=== PATIENT | female | born 1970 | race Caucasian/White ===

== ENCOUNTER 2017-07-21 08:47 | Emergency (ER) | payer SELFPAY ==
[~2017-07-21] VITALS: Ht 175.3 cm; Wt 107.0 kg
[~2017-07-21 08:47] MED LIST: CPR500 PO; ESCI10TA17 PO; LISI-729 PO; LRT5 PO; METR-163 PO
[2017-07-21 08:53] VITALS: TEMP 36.9; Ht 175.3 cm; Wt 107.0 kg
[2017-07-21] MEDS ORDERED: DICYCLOMINE HCL 20 MG TAB PO STA (09:18)
[2017-07-21 09:46] LABS: BASO % 0.4 %; BASO ABS # 0.04 K/uL (0-0.2); COMPLETE YES; EOS % 3.9 %; HEMATOCRIT 39.4 % (37-47); IG% 0.3 %; LYMPH % 18.8 %; LYMPH ABS # 1.88 K/uL (1.2-3.4); MEAN CELL VOLUME 92.3 fL (80-100); MEAN CORPUSCULAR HEMOGLOBIN 30.7 pg (25-34); MEAN CORPUSCULAR HGB CONC 33.2 g/dl (32-36); MEAN PLATELET VOLUME 9.9 fL (7.4-10.4); MONO % 5.1 %; NEUT % 71.5 %; PLATELET COUNT 306 K/uL (130-400); RED BLOOD COUNT 4.27 M/uL (4.2-5.4)
[2017-07-21] MEDS ORDERED: LISI20TA3 PO (09:46)
[2017-07-21] MEDS ORDERED: TURM1CAP2 PO (09:46)
[2017-07-21] MEDS ORDERED: CYAN100020 PO (09:46)
[2017-07-21 10:05] LABS: BUN/CREATININE RATIO 8.5 (10-20); CALCIUM 8.2 mg/dl (8.5-10.1); CREATININE 1.11 mg/dl (0.60-1.20); POTASSIUM 3.5 mmol/L (3.5-5.1)
--- NOTE | 2017-07-21 10:20 | DIAGNOSTIC IMAGING REPORT ---
PA CHEST WITH ABDOMINAL SERIES CLINICAL HISTORY: Generalized abdominal pain. FINDINGS: A PA chest radiograph is compared to study dated 08/02/2011. The cardiomediastinal silhouette is unremarkable. The lungs and pleural spaces are clear. No pneumothorax is seen. The bony thorax is grossly intact. Supine and erect abdominal radiographs are correlated with abdominal CT dated 01/05/2012. There is a nonobstructed abdominal bowel gas pattern. No evidence of intraperitoneal free air is seen. There are no abnormal abdominal calcifications. The lumbosacral spine and bony pelvis appear intact. IMPRESSION: 1. No active disease in the chest. 2. Nonobstructed abdominal bowel gas pattern. Electronically signed by: Cam Christensen M.D. 07/21/2017 10:18 AM Dictated Date/Time: 07/21/2017 10:17 AM
[2017-07-21] MEDS ORDERED: IBUPROFEN 600 MG TAB PO STA (10:37)
[2017-07-21] MEDS ORDERED: DICY20TA35 PO (10:43)
--- NOTE | 2017-07-21 10:46 | EMERGENCY ROOM VISIT NOTE ---
History First contact with patient: 09:05 Chief Complaint: GI ASSESSMENT Stated Complaint: STOMACH SPASMS, IBS Nursing Triage Summary: pt reports hx of IBS this started to act up 1 day ago and today is worse. denies Vomitting History of Present Illness The patient is a 46 year old female who presents to the Emergency Room with complaints of generalized abdominal cramping. The patient states the symptoms started yesterday. The patient has a history of IBS. She states the symptoms are similar to when she has had in the past. The patient denies any nausea or vomiting. The patient states she had a normal bowel movement yesterday. She has not had a bowel movement today. The patient denies any urinary symptoms of frequency, urgency or dysuria. The patient does not have any medication at home to take for her IBS. She states that she had Cipro at home which she took one dose yesterday and 1 today. Review of Systems 10 system review was performed and was negative unless stated otherwise history of present illness. Past Medical/Surgical History Hypertension, IBS, Social History Smoking Status: Never Smoker Alcohol Use: occasionally Marital Status: single Housing Status: lives with family Occupation Status: employed Current/Historical Medications Scheduled Cyanocobalamin (Vitamin B12), 1 TAB PO DAILY Lisinopril (Prinivil), 20 MG PO DAILY Turmeric (Curcuma Longa) (Turmeric), 1 CAP PO DAILY Physical Exam Vital Signs Date Time Temp Pulse Resp B/P (MAP) Pulse Ox O2 Delivery O2 Flow Rate FiO2 07/21/17 08:53 36.9 107 20 187/120 98 Room Air Physical Exam GENERAL: 46-year-old white female appears in no acute distress. MENTAL Status: Alert and oriented 3. MOUTH: Mucosa is moist NECK: Supple, no lymphadenopathy noted. No carotid bruits noted. LUNGS: Clear auscultation without wheezes rales or rhonchi. CARDIAC: Regular rate and rhythm without murmur. Pulses is full and equal throughout. BACK: No CVA tenderness noted. ABDOMEN: Positive bowel sounds all 4 quadrants. Soft, mild generalized tenderness to palpation without organomegaly or masses. EXTREMITIES: No cyanosis or edema noted. Medical Decision & Procedures ER Provider Diagnostic Interpretation: PA CHEST WITH ABDOMINAL SERIES CLINICAL HISTORY: Generalized abdominal pain. FINDINGS: A PA chest radiograph is compared to study dated 08/02/2011. The cardiomediastinal silhouette is unremarkable. The lungs and pleural spaces are clear. No pneumothorax is seen. The bony thorax is grossly intact. Supine and erect abdominal radiographs are correlated with abdominal CT dated 01/05/2012. There is a nonobstructed abdominal bowel gas pattern. No evidence of intraperitoneal free air is seen. There are no abnormal abdominal calcifications. The lumbosacral spine and bony pelvis appear intact. IMPRESSION: 1. No active disease in the chest. 2. Nonobstructed abdominal bowel gas pattern. Electronically signed by: Cam Christensen M.D. 07/21/2017 10:18 AM Laboratory Results 07/21/17 09:30 Red Blood Count 4.27, Mean Corpuscular Volume 92.3, Mean Corpuscular Hemoglobin 30.7, Mean Corpuscular Hemoglobin Concent 33.2, Mean Platelet Volume 9.9, Neutrophils (%) (Auto) 71.5, Lymphocytes (%) (Auto) 18.8, Monocytes (%) (Auto) 5.1, Eosinophils (%) (Auto) 3.9, Basophils (%) (Auto) 0.4, Neutrophils # (Auto) 7.15, Lymphocytes # (Auto) 1.88, Monocytes # (Auto) 0.51, Eosinophils # (Auto) 0.39, Basophils # (Auto) 0.04 07/21/17 09:30 Test 07/21/17 09:30 White Blood Count 10.00 K/uL (4.8-10.8) Red Blood Count 4.27 M/uL (4.2-5.4) Hemoglobin 13.1 g/dL (12.0-16.0) Hematocrit 39.4 % (37-47) Mean Corpuscular Volume 92.3 fL (80-100) Mean Corpuscular Hemoglobin 30.7 pg (25-34) Mean Corpuscular Hemoglobin Concent 33.2 g/dl (32-36) Platelet Count 306 K/uL (130-400) Mean Platelet Volume 9.9 fL (7.4-10.4) Neutrophils (%) (Auto) 71.5 % Lymphocytes (%) (Auto) 18.8 % Monocytes (%) (Auto) 5.1 % Eosinophils (%) (Auto) 3.9 % Basophils (%) (Auto) 0.4 % Neutrophils # (Auto) 7.15 K/uL (1.4-6.5) Lymphocytes # (Auto) 1.88 K/uL (1.2-3.4) Monocytes # (Auto) 0.51 K/uL (0.11-0.59) Eosinophils # (Auto) 0.39 K/uL (0-0.5) Basophils # (Auto) 0.04 K/uL (0-0.2) RDW Standard Deviation 44.4 fL (36.4-46.3) RDW Coefficient of Variation 13.2 % (11.5-14.5) Immature Granulocyte % (Auto) 0.3 % Immature Granulocyte # (Auto) 0.03 K/uL (0.00-0.02) Anion Gap 7.0 mmol/L (3-11) Est Creatinine Clear Calc Drug Dose 81.6 ml/min Estimated GFR () 68.5 Estimated GFR (Non- 59.1 BUN/Creatinine Ratio 8.5 (10-20) Calcium Level 8.2 mg/dl (8.5-10.1) Total Bilirubin 0.6 mg/dl (0.2-1) Direct Bilirubin 0.1 mg/dl (0-0.2) Aspartate Amino Transf (AST/SGOT) 7 U/L (15-37) Alanine Aminotransferase (ALT/SGPT) 14 U/L (12-78) Alkaline Phosphatase 82 U/L (45-117) Total Protein 6.9 gm/dl (6.4-8.2) Albumin 3.4 gm/dl (3.4-5.0) Lipase 120 U/L (73-393) Medications Administered Medications (Trade) Dose Ordered Sig/Jed Route Start Time Stop Time Status Last Admin Dose Admin Dicyclomine HCl (Bentyl Tab) 20 mg NOW STAT PO 07/21/17 09:18 07/21/17 09:20 DC 07/21/17 10:05 20 MG ED Course The patient was evaluated. The patient's EMR medication list were reviewed. IV access was obtained. CBC and differential, renal profile, LFTs and lipase levels were ordered. The patient was given Bentyl 20 mg by mouth. Abdominal series x-ray was ordered and interpreted by the radiologist and myself as above any acute findings. Labs are reviewed and were all unremarkable. The patient was reevaluated and stated that the Bentyl helped with the cramping. She states her abdomen which just sore. She was given ibuprofen 600 mg by mouth for pain. The patient's blood pressure was also elevated. She stated she did not take her blood pressure medicine this morning. I instructed the patient if her blood pressure to talk him down with her medication she needs to go to her family doctor in 2 days for recheck. The patient verbalized understanding. The patient was discharged home in stable condition. Medical Decision Differential diagnosis include muscular strain, viral gastroenteritis, bowel obstruction, flare of IBS Since the patient stated that this was similar to her IBS flares in the past a CT was not ordered. She was given Bentyl with relief of her symptoms. [facility] Drug Monitoring Program Search Results: patient reviewed within database Medication Reconcilliation Current Medication List: was personally reviewed by me Blood Pressure Screening Patient's blood pressure: Elevated blood pressure Blood pressure disposition: Referred to PCP Ibuprofen 600 mg every 6 hours with food for pain. Take Bentyl as directed for abdominal cramping. If symptoms persist, follow-up with your family doctor or return to ER. Impression Primary Impression: IBS (irritable bowel syndrome) Additional Impression: Elevated blood pressure reading Departure Information Dispostion Home / Self-Care Condition GOOD Prescriptions Dicyclomine Hcl (BENTYL) 20 Mg Tab 20 MG PO Q8 for abdominal cramps, #20 TAB Prov: Niharika Peters PA-C 07/21/17 Referrals Luc Almanzar DO (PCP) Forms HOME CARE DOCUMENTATION FORM, IMPORTANT VISIT INFORMATION Patient Instructions ED IBS, [facility] Additional Instructions Ibuprofen 600 mg every 6 hours with food for pain. Take Bentyl as needed for abdominal cramping. If symptoms are not improving, follow-up with your family doctor or return to ER. Also if your blood pressure is still elevated after taking her blood pressure medication, recommend follow-up with your family physician on Sunday for recheck. Problem Qualifiers Primary Impression: IBS (irritable bowel syndrome) Irritable bowel syndrome type: without diarrhea Qualified Codes: K58.9 - Irritable bowel syndrome without diarrhea
[2017-07-21 11:06] VITALS: BP 187/135; PULSE 90; O2SAT 98
[2017-07-22] MEDS ORDERED: OXYC1TAB3 PO (22:02)
== END 2017-07-21 11:06 | disposition home or self-care (01) ==
LOC: C.EDB 08:48
DX: K58.9 Irritable bowel syndrome, unspecified (principal); I10 Essential (primary) hypertension

== ENCOUNTER 2017-07-22 17:08 | Emergency (ER) | payer OTHER ==
[~2017-07-22 17:08] MED LIST changes: -CPR500 PO; +CYAN100020 PO; +DICY20TA35 PO; -ESCI10TA17 PO; -LISI-729 PO; +LISI20TA3 PO; -LRT5 PO; -METR-163 PO; +TURM1CAP2 PO
[2017-07-22 17:52] VITALS: TEMP 36.9; Ht 175.3 cm
[2017-07-22] MEDS ORDERED: ONDANSETRON INJ 2 MG/ML 2 ML VIAL IV STA (18:14)
[2017-07-22] MEDS ORDERED: MoRPHine SULFATE 4 MG/ML 1 ML CARP\\VIAL IV STA (18:14)
[2017-07-22 18:41] LABS: BASO % 0.2 %; BASO ABS # 0.03 K/uL (0-0.2); COMPLETE YES; EOS % 2.2 %; HEMATOCRIT 40.9 % (37-47); IG% 0.2 %; LYMPH % 13.4 %; LYMPH ABS # 1.87 K/uL (1.2-3.4); MEAN CELL VOLUME 93.2 fL (80-100); MEAN CORPUSCULAR HEMOGLOBIN 31.7 pg (25-34); MONO % 4.8 %; NEUT % 79.2 %; PLATELET COUNT 338 K/uL (130-400); RED BLOOD COUNT 4.39 M/uL (4.2-5.4); WHITE BLOOD COUNT 13.99 K/uL (4.8-10.8)
[2017-07-22 19:05] LABS: ALT/SGPT 14 U/L (12-78); AST/SGOT 8 U/L (15-37); BLOOD UREA NITROGEN 13 mg/dl (7-18); BUN/CREATININE RATIO 10.2 (10-20); CALCIUM 8.9 mg/dl (8.5-10.1); CARBON DIOXIDE 26 mmol/L (21-32); CHLORIDE 105 mmol/L (98-107); CREATININE 1.25 mg/dl (0.60-1.20); GLUCOSE 111 mg/dl (70-99); POTASSIUM 3.4 mmol/L (3.5-5.1); SODIUM 139 mmol/L (136-145)
[2017-07-22 19:07] LABS: ALKALINE PHOSPHATASE 78 U/L (45-117)
[2017-07-22] MEDS ORDERED: SODIUM CHLORIDE 0.9% 1000ML 1,000 ML IV STA (19:35)
[2017-07-22 19:57] LABS: URINE APPEARANCE CLOUDY (CLEAR); URINE BILIRUBIN NEG (NEG); URINE COLOR YELLOW; URINE EPITHELIAL CELL AUTO >30 /lpf (0-5); URINE NITRITE NEG (NEG); URINE SPECIFIC GRAVITY 1.019 (1.000-1.030); UROBILINOGEN NEG (NEG)
[2017-07-22 19:58] LABS: MANUAL MICROSCOPIC REQUIRED? NO; REVIEW REQ? NO
[2017-07-22] MEDS ORDERED: OPTIRAY 320 IV PRN (21:30)
--- NOTE | 2017-07-22 21:31 | DIAGNOSTIC IMAGING REPORT ---
CT ABD/PELVIS IV AND ORAL CONT CLINICAL HISTORY: Diffuse abdominal pain. Possible colitis. COMPARISON STUDY: December 2011 TECHNIQUE: Following the IV administration of 116 mL of Optiray-320, CT scan of the abdomen and pelvis was performed from the lung bases to the proximal femurs. Images are reviewed in the axial, sagittal, and coronal planes. IV contrast was administered without complication. A dose lowering technique was utilized adhering to the principles of ALARA. CT DOSE: 978.53 mGy.cm FINDINGS: Lower chest: Dependent basal airspace opacities, are likely atelectatic. Liver: There is mild hepatic steatosis. There is trace perihepatic fluid. No focal hepatic masses are visualized. Gallbladder: Unremarkable. Spleen: Normal in size and attenuation. Pancreas: Unremarkable. Adrenal glands: Unremarkable. Kidneys: There is symmetric renal cortical enhancement. The kidneys are normal in size without hydronephrosis. Bowel: There is a thick-walled distal ileum. There is adjacent mesenteric fluid. There is minimal mesenteric edema There are no transition zone to indicate bowel obstruction. Peritoneum: There is a small amount of free fluid which is more than expected for physiologic free fluid. Vasculature: The abdominal aorta is normal in course and caliber. Adenopathy: None. Pelvic viscera: The bladder, and pelvic viscera are unremarkable. Skeletal structures: No destructive osseous lesions are seen. IMPRESSION: 1. No evidence of bowel obstruction. No evidence of free air 2. Moderately thick walled distal ileum with minimal mesenteric edema, and associated intraperitoneal fluid. The findings are most suggestive of an infectious ileitis or Crohn's disease. Clinical correlation and follow-up is recommended. Electronically signed by: Rk Guadarrama M.D. 07/22/2017 9:30 PM Dictated Date/Time: 07/22/2017 9:24 PM
[2017-07-22] MEDS ORDERED: OXYC1TAB3 PO (22:02)
[2017-07-22] MEDS ORDERED: OXYCODONE IR HOME PACK PO ONE (22:15)
[2017-07-22 22:21] VITALS: BP 167/107; PULSE 69; O2SAT 97
--- NOTE | 2017-07-22 22:25 | EMERGENCY ROOM VISIT NOTE ---
History Report prepared by Surinder: Asia Ko Under the Supervision of: Dr. Brannon Miranda M.D. First contact with patient: 18:07 Chief Complaint: GI ASSESSMENT Stated Complaint: IBS Nursing Triage Summary: patient reports seen here for same symptoms,patient reports worsening abdominal cramping History of Present Illness The patient is a 46 year old female who presents to the Emergency Room with complaints of worsening abdominal pain beginning 2 days ago. The patient states that her abdomen is tender and sore, and that she has been having spasms. The patient states that she has IBS, but that her pain from it does not usually last this long. The patient states that she has had diarrhea, but that this is common for her. She also reports vomiting and has had a loss of appetite. The patient denies fevers and vaginal discharge. She also denies a chance of . The patient states that she does not have a history of an appendectomy or a cholecystectomy. The patient states that she has a history of hypertension. Source of History: patient Onset: 2 days ago Position: abdomen Quality: cramping Timing: worsening Associated Symptoms: + vomiting, + diarrhea, No fevers, No melena, No hematochezia Review of Systems See HPI for pertinent positives & negatives. A total of 10 systems reviewed and were otherwise negative. Past Medical & Surgical Medical Problems: (1) Hypertension (2) IBS (irritable bowel syndrome) Family History No pertinent family history stated. Social History Smoking Status: Never Smoker Alcohol Use: occasionally Marital Status: Housing Status: lives with significant other Occupation Status: employed Current/Historical Medications Scheduled Cyanocobalamin (Vitamin B12), 1 TAB PO DAILY Dicyclomine Hcl (Bentyl), 20 MG PO Q8 Lisinopril (Prinivil), 20 MG PO DAILY Turmeric (Curcuma Longa) (Turmeric), 1 CAP PO DAILY Scheduled PRN Oxycodone Ir (Roxicodone Ir), 5 MG PO Q4H PRN for Pain Allergies Coded Allergies: No Known Allergies (Verified , 07/22/17) Physical Exam Vital Signs Date Time Temp Pulse Resp B/P (MAP) Pulse Ox O2 Delivery O2 Flow Rate FiO2 07/22/17 20:41 66 18 154/105 96 Room Air 07/22/17 17:52 36.9 100 18 139/96 97 Room Air Physical Exam Constitutional: Vital signs reviewed. Eyes: Pupils are equal round reactive to light. Conjunctiva are noninjected. ENT: Pharynx is clear without erythema or exudate. Mucous membranes are moist. Neck supple without meningeal signs. Respiratory: Clear to auscultation bilaterally. Breath sounds are equal bilaterally. Cardiovascular: Regular rate and rhythm. No rubs or gallops. GI: Soft, nondistended. Diffuse abdominal tenderness. No guarding. Bowel sounds are present. Musculoskeletal: No peripheral edema. No CVA tenderness. Integumentary: No cyanosis. Neurological: The patient is awake and alert. No focal deficits. Psychiatric: Normal affect. Medical Decision & Procedures ER Provider Diagnostic Interpretation: Radiology results as stated below per my review and the radiologist's interpretation: CT ABD/PELVIS IV AND ORAL CONT CLINICAL HISTORY: Diffuse abdominal pain. Possible colitis. COMPARISON STUDY: December 2011 TECHNIQUE: Following the IV administration of 116 mL of Optiray-320, CT scan of the abdomen and pelvis was performed from the lung bases to the proximal femurs. Images are reviewed in the axial, sagittal, and coronal planes. IV contrast was administered without complication. A dose lowering technique was utilized adhering to the principles of ALARA. CT DOSE: 978.53 mGy.cm FINDINGS: Lower chest: Dependent basal airspace opacities, are likely atelectatic. Liver: There is mild hepatic steatosis. There is trace perihepatic fluid. No focal hepatic masses are visualized. Gallbladder: Unremarkable. Spleen: Normal in size and attenuation. Pancreas: Unremarkable. Adrenal glands: Unremarkable. Kidneys: There is symmetric renal cortical enhancement. The kidneys are normal in size without hydronephrosis. Bowel: There is a thick-walled distal ileum. There is adjacent mesenteric fluid. There is minimal mesenteric edema There are no transition zone to indicate bowel obstruction. Peritoneum: There is a small amount of free fluid which is more than expected for physiologic free fluid. Vasculature: The abdominal aorta is normal in course and caliber. Adenopathy: None. Pelvic viscera: The bladder, and pelvic viscera are unremarkable. Skeletal structures: No destructive osseous lesions are seen. IMPRESSION: 1. No evidence of bowel obstruction. No evidence of free air 2. Moderately thick walled distal ileum with minimal mesenteric edema, and associated intraperitoneal fluid. The findings are most suggestive of an infectious ileitis or Crohn's disease. Clinical correlation and follow-up is recommended. Electronically signed by: Rk Guadarrama M.D. 07/22/2017 9:30 PM Dictated Date/Time: 07/22/2017 9:24 PM Laboratory Results 07/22/17 18:29 Red Blood Count 4.39, Mean Corpuscular Volume 93.2, Mean Corpuscular Hemoglobin 31.7, Mean Corpuscular Hemoglobin Concent 34.0, Mean Platelet Volume 10.0, Neutrophils (%) (Auto) 79.2, Lymphocytes (%) (Auto) 13.4, Monocytes (%) (Auto) 4.8, Eosinophils (%) (Auto) 2.2, Basophils (%) (Auto) 0.2, Neutrophils # (Auto) 11.08, Lymphocytes # (Auto) 1.87, Monocytes # (Auto) 0.67, Eosinophils # (Auto) 0.31, Basophils # (Auto) 0.03 07/22/17 18:29 Test 07/22/17 18:29 07/22/17 19:40 White Blood Count 13.99 K/uL (4.8-10.8) Red Blood Count 4.39 M/uL (4.2-5.4) Hemoglobin 13.9 g/dL (12.0-16.0) Hematocrit 40.9 % (37-47) Mean Corpuscular Volume 93.2 fL (80-100) Mean Corpuscular Hemoglobin 31.7 pg (25-34) Mean Corpuscular Hemoglobin Concent 34.0 g/dl (32-36) Platelet Count 338 K/uL (130-400) Mean Platelet Volume 10.0 fL (7.4-10.4) Neutrophils (%) (Auto) 79.2 % Lymphocytes (%) (Auto) 13.4 % Monocytes (%) (Auto) 4.8 % Eosinophils (%) (Auto) 2.2 % Basophils (%) (Auto) 0.2 % Neutrophils # (Auto) 11.08 K/uL (1.4-6.5) Lymphocytes # (Auto) 1.87 K/uL (1.2-3.4) Monocytes # (Auto) 0.67 K/uL (0.11-0.59) Eosinophils # (Auto) 0.31 K/uL (0-0.5) Basophils # (Auto) 0.03 K/uL (0-0.2) RDW Standard Deviation 46.2 fL (36.4-46.3) RDW Coefficient of Variation 13.5 % (11.5-14.5) Immature Granulocyte % (Auto) 0.2 % Immature Granulocyte # (Auto) 0.03 K/uL (0.00-0.02) Anion Gap 8.0 mmol/L (3-11) Estimated GFR () 59.3 Estimated GFR (Non- 51.2 BUN/Creatinine Ratio 10.2 (10-20) Calcium Level 8.9 mg/dl (8.5-10.1) Total Bilirubin 0.7 mg/dl (0.2-1) Direct Bilirubin 0.1 mg/dl (0-0.2) Aspartate Amino Transf (AST/SGOT) 8 U/L (15-37) Alanine Aminotransferase (ALT/SGPT) 14 U/L (12-78) Alkaline Phosphatase 78 U/L (45-117) Total Protein 7.4 gm/dl (6.4-8.2) Albumin 3.6 gm/dl (3.4-5.0) Lipase 108 U/L (73-393) Urine Color YELLOW Urine Appearance CLOUDY (CLEAR) Urine pH 5.0 (4.5-7.5) Urine Specific [place] 1.019 (1.000-1.030) Urine Protein NEG (NEG) Urine Glucose (UA) NEG (NEG) Urine Ketones NEG (NEG) Urine Occult Blood NEG (NEG) Urine Nitrite NEG (NEG) Urine Bilirubin NEG (NEG) Urine Urobilinogen NEG (NEG) Urine Leukocyte Esterase NEG (NEG) Urine WBC (Auto) 5-10 /hpf (0-5) Urine RBC (Auto) 0-4 /hpf (0-4) Urine Hyaline Casts (Auto) 5-10 /lpf (0-5) Urine Epithelial Cells (Auto) >30 /lpf (0-5) Urine Bacteria (Auto) NEG (NEG) Urine Test NEG (NEG) Laboratory results as reviewed by me. Medications Administered Medications (Trade) Dose Ordered Sig/Jed Route Start Time Stop Time Status Last Admin Dose Admin Morphine Sulfate (MoRPHine SULFATE INJ) 4 mg ONE STAT IV 07/22/17 18:14 07/22/17 18:15 DC 07/22/17 18:35 4 MG Ondansetron HCl (Zofran Inj) 4 mg NOW STAT IV 07/22/17 18:14 07/22/17 18:15 DC 07/22/17 18:35 4 MG Sodium Chloride 1,000 ml @ 999 mls/hr Q1H1M STAT IV 07/22/17 19:35 07/22/17 20:35 DC 07/22/17 19:47 999 MLS/HR Oxycodone HCl (Roxicodone Immediate Rel 5MG Home Pack) 1 homepack UD ONCE PO 07/22/17 22:15 07/22/17 22:16 DC 07/22/17 22:16 1 HOMEPACK ED Course 1808: The patient was evaluated in room A12B. A complete history and physical exam was performed. 1813: Ordered Zofran Inj 4 mg IV, Morphine Sulfate 4 mg IV. 1934: Ordered Sodium Chloride 1,000 ml @ 999 mls/hr IV. 2141: The patient reports feeling better. I discussed her results. 2142: Dr. Osei states that he would not treat the patient with anything at this point. He states that she can call the office tomorrow and she can make an appointment this week. 2144: I discussed what Dr. Osei said with the patient and she agrees with the plan. 2199: Upon reevaluation, the patient appeared to have improvement of her symptoms. I discussed giovanny's findings with her. She verbalized agreement of the treatment plan. She was discharged home. Medical Decision This is a 46-year-old female who presents with abdominal pain. Differential diagnosis includes irritable bowel syndrome, inflammatory bowel disease, colitis , enteritis, appendicitis, pancreatitis. I did perform a limited focused review of portions of the patient's old chart on the electronic medical record. The patient was seen here yesterday for abdominal pain. She had blood work done , was treated with Bentyl, and was discharged home. She had a colonoscopy done in 2011 which showed a polyp. I did evaluate the patient as noted above. Patient is presenting with worsening abdominal pain for the past 2 days. She has a history of IBS but her pain is more prolonged than usual and she has tenderness in the lower abdomen. IV access was established. I did treat the patient with IV morphine and Zofran. I did order stool cultures but the patient was unable to give us a sample. I did order and personally review the patient's urinalysis as described above. I did order and review the patient's blood work as noted in the electronic medical record. Her white blood cell count is elevated. I did order a CT of the abdomen and pelvis. I did review the images myself as well as the radiology report as described above. She has evidence of ileitis. I did discuss the test results with the patient. She is feeling better at this time. I did discuss the case with Dr. Osei with gastroenterology. He did not recommend any treatment at this time. He did not recommend antibiotics or steroids. Her prior colonoscopy did not show any signs of inflammatory bowel disease. He stated that the patient could call in the morning for appointment later this week. The patient was happy with this plan. I did give her a short prescription for oxycodone for breakthrough pain. She was given precautions regarding this medication. Her blood pressure is elevated here but the patient states that she has not been taking her lisinopril for the past 3 days. The patient was advised to take her medications on a regular basis and discharged in good condition. [place] Drug Monitoring Program Search Results: patient reviewed within database Drug Monitoring Findings: no matching patients Medication Reconcilliation Current Medication List: was personally reviewed by me Blood Pressure Screening Patient's blood pressure: Elevated blood pressure Blood pressure disposition: Referred to PCP Consults Time Called: 2141 Consulting Physician: Dr. Osei- - [facility] Returned Call: 2142 Dr. Osei states that he would not treat the patient with anything at this point. He states that she can call the office tomorrow and she can make an appointment this week. Impression Primary Impression: Ileitis Scribe Attestation The scribe's documentation has been prepared under my direct and personally reviewed by me in its entirety. I confirm that the note above accurately reflects all work, treatment, procedures, and medical decision making performed by me. Departure Information Dispostion Home / Self-Care Prescriptions Oxycodone Ir (Roxicodone Ir) 5 Mg Tab 5 MG PO Q4H Y for Pain, #10 TAB Prov: Brannon Miranda M.D. 07/22/17 Referrals Luc Almanzar DO (PCP) David Osei D.O. Forms HOME CARE DOCUMENTATION FORM, IMPORTANT VISIT INFORMATION Patient Instructions My [facility] Additional Instructions You have been examined and treated today on an emergency basis only. This is not a substitute for, or an effort to provide, complete comprehensive medical care. It is impossible to recognize and treat all injuries or illnesses in a single emergency department visit. It is therefore important that you follow up closely with Dr. Osei this week. Call as soon as possible for an appointment. Return for worsening symptoms or if you develop fever, vomiting, or any other concerning symptoms.
== END 2017-07-22 22:24 | disposition home or self-care (01) ==
LOC: C.EDB 17:08 → C.EDA 22:24
DX: K52.9 Noninfective gastroenteritis and colitis, unspecified (principal); I10 Essential (primary) hypertension; K58.9 Irritable bowel syndrome, unspecified

== ENCOUNTER 2018-11-28 15:09 | Inpatient (IN) ==
--- NOTE | 2018-11-28 16:30 | Emergency Department Note ---
History of Present Illness General Chief complaint: Neuro Symptoms/Deficit Stated complaint: HYPERSION,RT HAND WEAKNESS,NUMBNESS,SPEECH PROBLEM Source: patient Mode of arrival: ambulatory Limitations: no limitations History of Present Illness This patient is a 48-year-old female who presents the emergency department complaining of persistent neuro symptoms. She states that she first developed some tingling and weakness in her right hand 4 days ago. She does report she fell on ice a few weeks ago and hit her elbow and initially attributed her symptoms to this. She states that her friends noted that her speech was slurred and she has noticed she has had some trouble finding certain words. She was seen here 3 days ago for these symptoms and had a negative CT. She states her blood pressure has been very elevated. She has a history of hypertension and was previously on lisinopril. Her PCP had added on hydrochlorothiazide, however the patient thought she was only supposed to be taking the hydrochlorothiazide. When she was seen here, they started her on Norvasc and for the past several days she has only been taking the Norvasc for her hypertension. She does report a history of migraine headaches and has been having daily headaches as well. She was treated with medications for migraine on her last visit here with no i mprovement of her neuro symptoms. She denies any pain at this time. She denies chest pain, shortness of breath or abdominal pain. She denies urinary symptoms. She does note she has felt slightly unsteady on her feet but denies any falls. Her significant other notes that she has started a new diet recently and has been cutting out sweets and decreasing portion sizes. Home Medications Home Medications Medication Instructions Recorded Confirmed Type amlodipine [Norvasc] 10 mg PO DAILY #20 tab 11/25/18 11/28/18 Rx duloxetine [Cymbalta] 30 mg PO DAILY 11/25/18 11/28/18 History fluticasone [Flonase Allergy 2 spray INTRANASAL DAILY 11/25/18 11/28/18 History Relief] hydrochlorothiazide 12.5 mg PO DAILY 11/25/18 11/28/18 History Appetite Supressant Gtts 5 drp PO TID 11/28/18 11/28/18 History lisinopril 0 mg PO DAILY 11/28/18 11/28/18 History Allergies Allergy/AdvReac Type Severity Reaction Status Date / Time No Known Allergies Allergy Verified 11/25/18 10:28 Past Med/Surg History Medical History IBS (irritable bowel syndrome) (Chronic) Hypertension (Chronic) Social History 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 Fitness Required: No marital status: Current Living Situation: Spouse current occupational status: employed Feels Safe at Home: Yes Safety Concerns: Feels Safe At This Time Smoking Status: Never smoker Hx Alcohol Use: Yes ("1-2 drinks every 2 weeks") Hx Substance Use: No Review of Systems A total of 10 systems reviewed and were otherwise negative Physical Exam Vital Signs Vital Signs - 24 hr 11/28/18 15:13 11/28/18 15:40 11/28/18 17:31 Temperature 36.5 C Temperature Source Oral Sepsis Recent Fever Within 48 Hours No Sepsis Action Taken by Nursing No Action Required Pulse Rate 90 Pulse Rate [Finger] 94 H Pulse Rate [Left Apical] Pulse Rhythm Regular Pulse Rhythm [Left Apical] Pulse Strength Normal Pulse Strength [Left Apical] Respiratory Rate 20 17 Respiratory Effort / Characteristics Non-Labored Spontaneous Respiratory Depth Normal Normal Respiratory Pattern Blood Pressure 164/122 H Blood Pressure [Left Arm] 193/117 H Blood Pressure [Right Arm] Blood Pressure Mean 136 Blood Pressure Mean [Left Arm] 142 Blood Pressure Mean [Right Arm] Blood Pressure Position Sitting Blood Pressure Position [Left Arm] Pulse Oximetry 99 98 Oxygen Delivery Method Room Air Room Air 11/28/18 17:46 11/28/18 18:01 11/28/18 18:21 Temperature Temperature Source Sepsis Recent Fever Within 48 Hours Sepsis Action Taken by Nursing Pulse Rate Pulse Rate [Finger] 96 H 85 Pulse Rate [Left Apical] Pulse Rhythm Pulse Rhythm [Left Apical] Pulse Strength Pulse Strength [Left Apical] Respiratory Rate 17 Respiratory Effort / Characteristics Respiratory Depth Respiratory Pattern Blood Pressure Blood Pressure [Left Arm] 193/51 H 186/124 H 168/104 H Blood Pressure [Right Arm] Blood Pressure Mean Blood Pressure Mean [Left Arm] 98 144 125 Blood Pressure Mean [Right Arm] Blood Pressure Position Blood Pressure Position [Left Arm] Pulse Oximetry 97 98 Oxygen Delivery Method Room Air Room Air 11/28/18 18:30 11/28/18 20:15 11/28/18 21:45 Temperature 36.7 C Temperature Source Oral Sepsis Recent Fever Within 48 Hours Sepsis Action Taken by Nursing Pulse Rate Pulse Rate [Finger] 84 80 89 Pulse Rate [Left Apical] Pulse Rhythm Pulse Rhythm [Left Apical] Pulse Strength Pulse Strength [Left Apical] Respiratory Rate 17 18 18 Respiratory Effort / Characteristics Non-Labored Spontaneous Respiratory Depth Normal Respiratory Pattern Blood Pressure Blood Pressure [Left Arm] 173/115 H 176/122 H 181/100 H Blood Pressure [Right Arm] 172/101 H Blood Pressure Mean Blood Pressure Mean [Left Arm] 134 140 127 Blood Pressure Mean [Right Arm] 124 Blood Pressure Position Blood Pressure Position [Left Arm] Pulse Oximetry 98 99 98 Oxygen Delivery Method Room Air Room Air 11/28/18 23:27 11/29/18 02:42 11/29/18 05:50 Temperature 36.6 C 36.7 C Temperature Source Oral Oral Sepsis Recent Fever Within 48 Hours Sepsis Action Taken by Nursing Pulse Rate 83 Pulse Rate [Finger] 83 77 Pulse Rate [Left Apical] Pulse Rhythm Pulse Rhythm [Left Apical] Pulse Strength Pulse Strength [Left Apical] Respiratory Rate 18 18 Respiratory Effort / Characteristics Non-Labored Spontaneous Respiratory Depth Respiratory Pattern Blood Pressure Blood Pressure [Left Arm] 144/87 H 150/93 H Blood Pressure [Right Arm] Blood Pressure Mean Blood Pressure Mean [Left Arm] 106 112 Blood Pressure Mean [Right Arm] Blood Pressure Position Blood Pressure Position [Left Arm] Lying Pulse Oximetry 97 96 Oxygen Delivery Method Room Air Room Air 11/29/18 07:40 11/29/18 08:00 Temperature 36.9 C Temperature Source Oral Sepsis Recent Fever Within 48 Hours Sepsis Action Taken by Nursing Pulse Rate 75 Pulse Rate [Finger] Pulse Rate [Left Apical] 78 Pulse Rhythm Pulse Rhythm [Left Apical] Regular Pulse Strength Pulse Strength [Left Apical] Normal Respiratory Rate 16 Respiratory Effort / Characteristics Non-Labored Spontaneous Respiratory Depth Normal Respiratory Pattern Regular Blood Pressure Blood Pressure [Left Arm] 160/111 H Blood Pressure [Right Arm] Blood Pressure Mean Blood Pressure Mean [Left Arm] 127 Blood Pressure Mean [Right Arm] Blood Pressure Position Blood Pressure Position [Left Arm] Lying Pulse Oximetry 98 Oxygen Delivery Method Room Air VITALS: Vitals are noted on the nurse's note and reviewed by myself. Vital signs stable. GENERAL: This patient is a 48-year-old female, in no acute distress, nondiaphoretic, well-developed well-nourished. SKIN: The skin was without rashes. HEAD: Normocephalic atraumatic. EARS: External auditory canals clear, tympanic membranes pearly hernandez without erythema or effusion bilaterally. EYES: Pupils equal round and reactive to light and accommodation. Extraocular movements intact. MOUTH: Mucous membranes moist. Tonsils are not enlarged. Pharynx without erythema or exudate. NECK: Supple without nuchal rigidity. No lymphadenopathy. No meningismus. HEART: Regular rate and rhythm without murmurs gallops or rubs. LUNGS: Clear to auscultation bilaterally without wheezes, rales or rhonchi. ABDOMEN: Positive bowel sounds x 4. Soft, nontender to palpation. MUSCULOSKELETAL: Business Specialist strength in the right just slightly decreased compared to the left. Otherwise full range of motion and strength 5/5 throughout. NEURO: Patient was alert and oriented to person place and time. Normal sensation to light and sharp touch. Facial expressions symmetrical. Normal rapid alternating movements. Normal finger to nose testing. Patient does seem to struggle with word finding at times. Overall, no focal neurological deficits. Course Consultations Consultation #1: [place] [facility] [place] Administered Medications [facility]) [facility] [place]: 12/29/18 08:59 Last Admin: 11/29/18 08:26 Dose: 81 mg Documented by: [id number] Duloxetine HCl (Cymbalta) 30 mg PO DAILY [facility] Stop: 12/29/18 08:59 Last Admin: 11/29/18 08:26 Dose: 30 mg Documented by: [id number] Enoxaparin Sodium (Lovenox) [facility] [place] Stop: 12/29/18 08:59 Last Admin: 11/29/18 08:26 Dose: 40 mg Documented by: [id number] Gadobutrol (Gadavist 65ml) 10.5 ml IV ONCE PRN PRN Reason: Interaction Checking Stop: 12/02/18 17:30 Last Admin: 11/28/18 17:32 Dose: 10.5 ml Documented by: [id number] Discontinued Medications Aspirin (Aspirin) 324 mg PO NOW [facility] Stop: 11/28/18 18:04 Last Admin: 11/28/18 18:09 Dose: 324 mg Documented by: [id number] Atorvastatin Calcium (Lipitor) 40 mg PO QAM [facility] Stop: 12/29/18 08:59 Last Admin: 11/29/18 08:26 Dose: 40 mg Documented by: [id number] Potassium Chloride (Klor-Con M20) 20 meq PO ONE ONE Stop: 11/29/18 07:01 Last Admin: 11/29/18 05:48 Dose: 20 meq Documented by: [id number] Medical Decision Making Differential Diagnosis Differential diagnosis includes CVA, mass/malignancy, TIA, atypical migraine, demyelinating disorder, among others. Medical Records Attestation: I reviewed the patient's medical records. Home Medications Current Medication List: was personally reviewed by me Laboratory Data Attestation: I reviewed the patient's lab results. Result diagrams: 11/29/18 06:17 11/29/18 06:17 Lab Results 11/28/18 11/28/18 11/28/18 Range/Units 15:39 15:39 15:39 WBC 10.15 (4.8-10.8) K/uL RBC 4.42 (4.2-5.4) M/uL Hgb 12.9 (12.0-16.0) g/dL Hct 40.2 (37-47) % MCV 91.0 (80-100) fL MCH 29.2 (25-34) pg MCHC 32.1 (32-36) g/dL RDW Std Deviation 49.2 H (36.4-46.3) fL RDW Coeff of [place] 14.7 H (11.5-14.5) % Plt Count 427 H (130-400) K/uL MPV 9.8 (7.4-10.4) fL Immature Gran % (Auto) 0.2 % Neut % (Auto) 69.4 % Lymph % (Auto) 23.4 % [place] % (Auto) 5.0 % Eos % (Auto) 1.5 % Baso % (Auto) 0.5 % Immature Gran # (Auto) 0.02 (0.00-0.02) K/uL Neut # (Auto) 7.04 H (1.4-6.5) K/uL Lymph # (Auto) 2.38 (1.2-3.4) K/uL [place] # (Auto) 0.51 (0.11-0.59) K/uL Eos # (Auto) 0.15 (0-0.5) K/uL Baso # (Auto) 0.05 (0-0.2) K/uL PT 10.3 (9.0-12.0) Seconds INR 1.0 (0.9-1.1) APTT 25.1 (21.0-31.0) Seconds PTT Ratio 0.9 Sodium 136 (136-145) mmol/L Potassium 3.4 L (3.5-5.1) mmol/L Chloride 105 (98-107) mmol/L Carbon Dioxide 23 (21-32) mmol/L Anion Gap 8.0 (3-11) BUN 8 (7-18) mg/dl Creatinine 0.85 (0.6-1.2) mg/dl Est Cr Clr Drug Dosing 108.1 ml/min Est GFR ( Amer) 93.3 Est GFR (Non-Af Amer) 80.5 BUN/Creatinine Ratio 8.8 L (10-20) Glucose 88 (70-99) mg/dl Estimat Average Glucose mg/dl Hemoglobin A1c (4.5-5.6) % Calcium 8.6 (8.5-10.1) mg/dl Magnesium 2.0 (1.8-2.4) mg/dl Total Bilirubin 0.5 (0.2-1) mg/dl Direct Bilirubin 0.1 (0-0.2) mg/dl AST 11 L (15-37) U/L ALT 17 (12-78) U/L Alkaline Phosphatase 70 (45-117) U/L Troponin I < 0.015 (0-0.045) ng/ml Total Protein 7.8 (6.4-8.2) gm/dl Albumin 3.8 (3.4-5.0) gm/dl Triglycerides (0-150) mg/dl Cholesterol (0-200) mg/dl LDL Cholesterol, Calc mg/dl VLDL Cholesterol, Calc mg/dl HDL Cholesterol mg/dl Cholesterol/HDL Ratio Urine Color Urine Appearance (Clear) Urine pH (4.5-7.5) Ur Specific [place] (1.000-1.030) Urine Protein (Negative) Urine Glucose (UA) (Negative) Urine Ketones (Negative) Urine Blood (Negative) Urine Nitrite (Negative) Urine Bilirubin (Negative) Urine Urobilinogen (Negative) Ur Leukocyte Esterase (Negative) POC Ur Test (NEG) 11/28/18 11/28/18 11/29/18 Range/Units 16:01 16:01 06:17 WBC 10.18 (4.8-10.8) K/uL RBC 4.24 (4.2-5.4) M/uL Hgb 12.2 (12.0-16.0) g/dL Hct 38.9 (37-47) % MCV 91.7 (80-100) fL MCH 28.8 (25-34) pg MCHC 31.4 L (32-36) g/dL RDW Std Deviation 50.0 H (36.4-46.3) fL RDW Coeff of [place]ul[place] 15.0 H (11.5-14.5) % Plt Count 377 (130-400) K/uL MPV 9.5 (7.4-10.4) fL Immature Gran % (Auto) 0.1 % Neut % (Auto) 63.5 % Lymph % (Auto) 27.3 % [place] % (Auto) 6.6 % Eos % (Auto) 2.1 % Baso % (Auto) 0.4 % Immature Gran # (Auto) 0.01 (0.00-0.02) K/uL Neut # (Auto) 6.47 (1.4-6.5) K/uL Lymph # (Auto) 2.78 (1.2-3.4) K/uL [place] # (Auto) 0.67 H (0.11-0.59) K/uL Eos # (Auto) 0.21 (0-0.5) K/uL Baso # (Auto) 0.04 (0-0.2) K/uL PT (9.0-12.0) Seconds INR (0.9-1.1) APTT (21.0-31.0) Seconds PTT Ratio Sodium (136-145) mmol/L Potassium (3.5-5.1) mmol/L Chloride (98-107) mmol/L Carbon Dioxide (21-32) mmol/L Anion Gap (3-11) BUN (7-18) mg/dl Creatinine (0.6-1.2) mg/dl Est Cr Clr Drug Dosing ml/min Est GFR ( Amer) Est GFR (Non-Af Amer) BUN/Creatinine Ratio (10-20) Glucose (70-99) mg/dl Estimat Average Glucose mg/dl Hemoglobin A1c (4.5-5.6) % Calcium (8.5-10.1) mg/dl Magnesium (1.8-2.4) mg/dl Total Bilirubin (0.2-1) mg/dl Direct Bilirubin (0-0.2) mg/dl AST (15-37) U/L ALT (12-78) U/L Alkaline Phosphatase (45-117) U/L Troponin I (0-0.045) ng/ml Total Protein (6.4-8.2) gm/dl Albumin (3.4-5.0) gm/dl Triglycerides (0-150) mg/dl Cholesterol (0-200) mg/dl LDL Cholesterol, Calc mg/dl VLDL Cholesterol, Calc mg/dl HDL Cholesterol mg/dl Cholesterol/HDL Ratio Urine Color Yellow Urine Appearance Clear (Clear) Urine pH 6.0 (4.5-7.5) Ur Specific [place] 1.006 (1.000-1.030) Urine Protein Negative (Negative) Urine Glucose (UA) Negative (Negative) Urine Ketones Negative (Negative) Urine Blood Negative (Negative) Urine Nitrite Negative (Negative) Urine Bilirubin Negative (Negative) Urine Urobilinogen Negative (Negative) Ur Leukocyte Esterase Negative (Negative) POC Ur Test NEG (NEG) 11/29/18 11/29/18 Range/Units 06:17 06:17 WBC (4.8-10.8) K/uL RBC (4.2-5.4) M/uL Hgb (12.0-16.0) g/dL Hct (37-47) % MCV (80-100) fL MCH (25-34) pg MCHC (32-36) g/dL RDW Std Deviation (36.4-46.3) fL RDW Coeff of [place]ul[place] (11.5-14.5) % Plt Count (130-400) K/uL MPV (7.4-10.4) fL Immature Gran % (Auto) % Neut % (Auto) % Lymph % (Auto) % [place] % (Auto) % Eos % (Auto) % Baso % (Auto) % Immature Gran # (Auto) (0.00-0.02) K/uL Neut # (Auto) (1.4-6.5) K/uL Lymph # (Auto) (1.2-3.4) K/uL [place] # (Auto) (0.11-0.59) K/uL Eos # (Auto) (0-0.5) K/uL Baso # (Auto) (0-0.2) K/uL PT (9.0-12.0) Seconds INR (0.9-1.1) APTT (21.0-31.0) Seconds PTT Ratio Sodium 138 (136-145) mmol/L Potassium 3.5 (3.5-5.1) mmol/L Chloride 106 (98-107) mmol/L Carbon Dioxide 26 (21-32) mmol/L Anion Gap 6.0 (3-11) BUN 8 (7-18) mg/dl Creatinine 0.95 (0.6-1.2) mg/dl Est Cr Clr Drug Dosing 96.7 ml/min Est GFR ( Amer) 81.5 Est GFR (Non-Af Amer) 70.3 BUN/Creatinine Ratio 8.7 L (10-20) Glucose 98 (70-99) mg/dl Estimat Average Glucose 103 mg/dl Hemoglobin A1c 5.2 (4.5-5.6) % Calcium 8.3 L (8.5-10.1) mg/dl Magnesium (1.8-2.4) mg/dl Total Bilirubin (0.2-1) mg/dl Direct Bilirubin (0-0.2) mg/dl AST (15-37) U/L ALT (12-78) U/L Alkaline Phosphatase (45-117) U/L Troponin I (0-0.045) ng/ml Total Protein (6.4-8.2) gm/dl Albumin (3.4-5.0) gm/dl Triglycerides 348 H (0-150) mg/dl Cholesterol 162 (0-200) mg/dl LDL Cholesterol, Calc 54 mg/dl VLDL Cholesterol, Calc 70 mg/dl HDL Cholesterol 38 mg/dl Cholesterol/HDL Ratio 4 Urine Color Urine Appearance (Clear) Urine pH (4.5-7.5) Ur Specific [place] (1.000-1.030) Urine Protein (Negative) Urine Glucose (UA) (Negative) Urine Ketones (Negative) Urine Blood (Negative) Urine Nitrite (Negative) Urine Bilirubin (Negative) Urine Urobilinogen (Negative) Ur Leukocyte Esterase (Negative) POC Ur Test (NEG) Imaging Data Attestation: I personally reviewed and interpreted this imaging study as follows: Radiologist's Impression: MR brain wo/w con FINDINGS: Localizer images: Unremarkable. Ventricles and sulci normal in size. Acute lacunar infarct in the left freeman at the junction with the midbrain. Associated T2/FLAIR hyperintensity. No abnormal parenchymal enhancement. No mass effect or midline shift. No hemorrhage. No extra-axial fluid collection. T2 skull base flow voids preserved. Bone marrow signal intensity within the calvarium within normal limits. IMPRESSION: 1. Acute lacunar infarct in the left superior freeman, likely at least 6 to 12 hours given the presence of associated T2/FLAIR hyperintensity. 2. No abnormal parenchymal enhancement. MR angio neck wo/w con FINDINGS: The aortic arch and proximal great vessels are widely patent. There is no significant stenosis, occlusion, or dissection identified within the bilateral common carotid, internal carotid, or vertebral arteries. IMPRESSION: No significant stenosis, occlusion, or dissection identified within the carotid or vertebral arteries. MR angio head wo con FINDINGS: Localizer images: Unremarkable. Anterior circulation: Intracranial portions of the internal carotid arteries patent to the level of the termini. Anterior cerebral arteries patent. Middle cerebral arteries patent. Anterior communicating artery patent. Posterior circulation: Codominant vertebral arteries. Intradural portions of the vertebral arteries patent. Posterior inferior cerebellar arteries patent. Basilar artery patent. Anterior inferior cerebellar arteries patent. Superior cerebellar arteries patent. Posterior cerebral arteries patent.Posterior communicating arteries hypoplastic or aplastic. IMPRESSION: 1. No significant stenosis, aneurysm, or focal vessel occlusion. Blood Pressure Blood Pressure Findings: Elevated blood pressure Blood Pressure Disposition: further management by hospitalist MDM Narrative The patient is a 48-year-old female who presents today complaining of neurological symptoms. Patient was seen here a few days ago and had negative workup and refused admission at that time. The patient has had persistent slurred speech, trouble with word finding and right hand/arm weakness. MRI was obtained today which reveals a lacunar infarct. Patient was given 324 mg of aspirin. Patient was hypertensive throughout her stay today, will be managed by hospitalist. [facility] Impression & Plan Cerebrovascular accident Discharge Plan Visit Data *Final* Discharge Date/Time: 11/28/18 22:16 Chief Complaint: Neuro Symptoms/Deficit Stated Complaint: HYPERSION,RT HAND WEAKNESS,NUMBNESS,SPEECH PROBLEM ED Provider: Paul Johnson ED Midlevel Provider: Cara Serrano Discharge Problem: Cerebrovascular accident Patient Disposition: Admitted As Inpatient Condition: Good Discharge Problem: Cerebrovascular accident Qualifiers: CVA mechanism: unspecified Qualified Code(s): I63.9 - Cerebral infarction, unspecified
[2018-11-28] MEDS ORDERED: GADOBUTROL 65ML VIAL IV PRN (17:31)
--- NOTE | 2018-11-28 17:35 | Magnetic Resonance Report ---
MR angio head wo con CLINICAL HISTORY: 48 years-old Female presenting with right arm numbness, tongue numbness, trouble sp eaking, symptoms since Sunday. TECHNIQUE: MR angiography of the head was performed without the use of intravenous contrast using 3-D [id number] technique. 3-D volumetric and/or maximum intensity projection (MIP) images were subse quently reconstructed for review. IV contrast: None. COMPARISON: Contrast-enhanced MR brain from 2008. FINDINGS: Localizer images: Unremarkable. Anterior circulation: Intracranial portions of the internal carotid arteries patent to the level of t he termini. Anterior cerebral arteries patent. Middle cerebral arteries patent. Anterior communicatin g artery patent. Posterior circulation: Codominant vertebral arteries. Intradural portions of the vertebral arteries p atent. Posterior inferior cerebellar arteries patent. Basilar artery patent. Anterior inferior cerebe llar arteries patent. Superior cerebellar arteries patent. Posterior cerebral arteries patent.Posteri or communicating arteries hypoplastic or aplastic. IMPRESSION: 1. No significant stenosis, aneurysm, or focal vessel occlusion. Electronically signed by: Ryan Laura M.D. 11/28/2018 5:34 PM
--- NOTE | 2018-11-28 17:36 | Magnetic Resonance Report ---
MR brain wo/w con CLINICAL HISTORY: 48 years-old Female presenting with slurred speech, right hand weakness. TECHNIQUE: Multisequence, multiplanar MR imaging of the brain was performed before and after the admi nistration of intravenous contrast. IV contrast: 10.5 mL of Gadavist. COMPARISON: MR from [address] head from 11/25/2018. FINDINGS: Localizer images: Unremarkable. Ventricles and sulci normal in size. Acute lacunar infarct in the left freeman at the junction with the midbrain. Associated T2/FLAIR hyperintensity. No abnormal parenchymal enhancement. No mass effect or midline shift. No hemorrhage. No extra-axial fluid collection. T2 skull base flow voids preserved. Bone marrow signal intensity within the calvarium within normal l imits. IMPRESSION: 1. Acute lacunar infarct in the left superior freeman, likely at least 6 to 12 hours given the presence of associated T2/FLAIR hyperintensity. 2. No abnormal parenchymal enhancement. Electronically signed by: Ryan Laura M.D. 11/28/2018 5:34 PM
--- NOTE | 2018-11-28 17:37 | Magnetic Resonance Report ---
MR angio neck wo/w con HISTORY: Mental status change slurred speech, right hand weakness TECHNIQUE: Multiaxial CT angiography of the neck was performed IV contrast: 10.5 cc All measur ements were calculated based on NASCET criteria. Maximum intensity projection images were also obtai ko. A dose lowering technique was utilized adhering to the principles of ALARA. COMPARISON STUDY: None. FINDINGS: The aortic arch and proximal great vessels are widely patent. There is no significant sten osis, occlusion, or dissection identified within the bilateral common carotid, internal carotid, or v ertebral arteries. IMPRESSION: No significant stenosis, occlusion, or dissection identified within the carotid or vertebral arteries . The above report was generated using voice recognition software. It may contain grammatical, syntax or spelling errors. Electronically signed by: Guru Peters M.D. 11/28/2018 5:36 PM
[2018-11-28] MEDS ORDERED: ASPIRIN CHEW 324 MG PO STA (18:03)
[2018-11-28] MEDS ORDERED: ACETAMINOPHEN 325 MG TAB PO PRN (22:01)
[2018-11-28] MEDS ORDERED: FLUTICASONE PROPIONATE NA SPR 16 GM BTL PRN (22:01)
[2018-11-28] MEDS ORDERED: PHARMACIST DISCHARGE MED REC CONSULT PRN (22:01)
--- NOTE | 2018-11-28 22:03 | History & Physical Report ---
Date of Service November 28, 2018 Assessment & Plan (1) CVA (cerebral vascular accident): Ms. Shelton is a 48 year old right-handed female with a history of hypertension, depression, IBS who presents to the emergency department due to a 4-day history of weakness and clumsiness in her right hand, slurred speech, difficulty with word finding, headache and feeling off balance. -admit to telemetry -Brain MRI showed acute lacunar infarct in left superior freeman -Head and neck MRA without significant findings -Neurology consulted -Fasting lipid panel and HbA1c ordered for the morning -ECHO ordered -Blood pressure elevated on arrival, hold home antihypertensives to allow for permissive hypertension -Begin aspirin and high intensity statin -PT and OT ordered Hypertension -Patient apparently on lisinopril, hydrochlorothiazide, amlodipine - patient has not been taking all 3. -Held for permissive hypertension - caution with reintroducing medications, watch for hypotension given patient was not taking medications as prescribed Anxiety -continue home duloxetine Ehler-Danos Syndrome -Per review of outpatient records, patient reportedly has a history of hypermobility w/Ehler Danos type III syndrome, w/out vascular or skin involvement -Patient has also had extensive inflammatory and autoimmune workup done by rheumatology. She has had negative APOLINAR, normal sed rate, negative CCP, negative rheumatoid factor. IBS -no symptoms reported currently Code status: FULL DVT Prophylaxis: Lovenox 40mg SQ daily Disposition: admit to telemetry F/E/N: Patient passed bedside dysphagia screen. Diet ordered. Potassium low at 3.4, supplemented w/PO potassium. No IVF. (2) Hypertension: (3) IBS (irritable bowel syndrome): (4) Anxiety: History of Present Illness Primary Care Provider: Luc Almanzar Ms. Shelton is a 48 year old right-handed female with a history of hypertension, depression, IBS who presents to the emergency department due to a 4-day history of weakness and clumsiness in her right hand, slurred speech, difficulty with word finding, headache and feeling off balance. She was seen in the emergency department 3 days ago [on 11/25], and underwent a head CT at this time which was negative. She returned to the emergency department due to persisting and worsening symptoms. 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 She states that she had problems with typing, as well as using her mouse. She initially attributed her right hand symptoms to a fall that she had onto her right arm approximately 3 weeks ago, where she slipped and fell onto the ice. She denied hitting her head, or any loss of consciousness at that time. Her right elbow x-ray, done at her prior ED visit, did not show any fractures. She also noted that she has had a dull, left-sided, mild occipital headache. She states that she has a history of migraines, however this headache was different. It improved with Tylenol. It was associated with her feeling off balance, having "spots in her vision." She also endorses intermittent tunnel vision, brought on by the lights in her office setting, but denies a sensation of having a curtain coming across her vision. Her mercerizing range controller in the ED also noted that she has had trouble with word finding, and slurred speech. The patient denies having difficulty with understanding what others are saying to her, but states that she has had difficulty with finding the correct word. With regards to Ms. Shelton's history of hypertension, she was prescribed lisinopril for this. She recently saw her PCP who added hydrochlorothiazide to optimize her BP management, however due to a misunderstanding, she did not take both medications, but only took the hydrochlorothiazide. During her last ED visit, the ED physician also added Norvasc to her regimen. She was meant to take all 3, however only took the Norvasc, as she did not realize she was meant to take all 3 medications. She states that she takes her blood pressure at home - she does not remember her exact readings, but states that they are generally less than 140/90. Denies a history of hypercholesterolemia, diabetes mellitus, prior TIA or stroke. She states that she has a history of APOLINAR elevation, and was seeing a automotive teacher at [facility], to work this up further, in order to see if there was a common cause with her bilateral lower extremity neuropathy, IBS, and migraines. She states that she does not have a family history of CVA. Her mother has a history of hypercholesterolemia and psoriatic arthritis. Her grandmother of an MA, and her grandmother siblings have all had cardiovascular disease. She has 2 sisters, who are alive and well. Ms. Shelton has been attempting to make lifestyle changes regarding her weight. She recently started Chirothin, and has been on this diet for a week. She denies a history of smoking or recreational drug use. She consumes alcohol infrequently. Allergies Allergy/AdvReac Type Severity Reaction Status Date / Time No Known Allergies Allergy Verified 11/25/18 10:28 Home Medications Home Medications Medication Instructions Recorded Confirmed Type amlodipine [Norvasc] 10 mg PO DAILY #20 tab 11/25/18 11/28/18 Rx duloxetine [Cymbalta] 30 mg PO DAILY 11/25/18 11/28/18 History fluticasone [Flonase Allergy 2 spray INTRANASAL DAILY 11/25/18 11/28/18 History Relief] hydrochlorothiazide 12.5 mg PO DAILY 11/25/18 11/28/18 History Appetite Supressant Gtts 5 drp PO TID 11/28/18 11/28/18 History lisinopril 0 mg PO DAILY 11/28/18 11/28/18 History Past Med/Surg History Medical History IBS (irritable bowel syndrome) (Chronic) Hypertension (Chronic) Social History Preferred Language: Albanian Loading Inspector Required: No marital status: Current Living Situation: Spouse current occupational status: employed Feels Safe at Home: Yes Safety Concerns: Feels Safe At This Time Smoking Status: Never smoker Hx Alcohol Use: Yes ("1-2 drinks every 2 weeks") Hx Substance Use: No Review of Systems Constitutional: no fever, no chills, no fatigue and no anorexia Eyes: + blind spots, + spots in vision and + tunnel vision; no diplopia Ear, Nose, Mouth, Throat: no nasal congestion Respiratory: no cough, no dyspnea and no wheezing Cardiovascular: no chest pain, no syncope, no edema and no calf pain Gastrointestinal: no abdominal pain, no nausea, no vomiting and no change in bowel habits Neurologic: + unsteadiness, + localized weakness (right arm), + tingling (right arm), + numbness (right arm), + lack of coordination, + headache(s) and + abnormal speech; no loss of sensation, no syncope, no confusion and no memory loss Physical Exam Vital Signs (Past 24 Hours): Last Vital Signs Temp 36.5 C 11/28/18 15:13 Pulse 80 11/28/18 20:15 Resp 18 11/28/18 20:15 BP 176/122 H 11/28/18 20:15 Pulse Ox 99 11/28/18 20:15 Constitutional: WD/WN, vitals as above + obese, cooperative and comfortable Eyes: PERRL, conjunctivae normal, anicteric sclerae ENMT: external ear and nose normal, oropharynx normal Respiratory: normal respiratory effort, lungs clear to auscultation Cardiovascular: RRR, no murmur, no edema Gastrointestinal (Abdomen): normal bowel sounds, soft, nontender, no hepatosplenomegaly Neurologic: patellar DTR's 2+ bilat, sensation intact + focal motor deficit (minimally decreased strength w/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 hand 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 and 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 and right foot dorsiflexion) Speech / Cognition: normal speech (occasionally pauses to recall a word, however no slurred speech) Motor/Sensory: + pronator drift (mild on right hand side); no tremor Cranial Nerves: PERRL, normal accommodation, EOM intact bilaterally, normal facial strength, able to elevate shoulders bilaterally and no nystagmus Coordination: normal hvwong-ir-amco test, normal gvfx-gn-gbnh test and normal rapid alternating movements Psychiatric: A+Ox3, euthymic affect Results & Data Laboratory Results Laboratory Results - last 24 hr 11/28/18 11/28/18 11/28/18 15:39 15:39 15:39 WBC 10.15 RBC 4.42 Hgb 12.9 Hct 40.2 MCV 91.0 MCH 29.2 MCHC 32.1 RDW Std Deviation 49.2 H RDW Coeff of Yuliet 14.7 H Plt Count 427 H MPV 9.8 Immature Gran % (Auto) 0.2 Neut % (Auto) 69.4 Lymph % (Auto) 23.4 Boundary % (Auto) 5.0 Eos % (Auto) 1.5 Baso % (Auto) 0.5 Immature Gran # (Auto) 0.02 Neut # (Auto) 7.04 H Lymph # (Auto) 2.38 Boundary # (Auto) 0.51 Eos # (Auto) 0.15 Baso # (Auto) 0.05 PT 10.3 INR 1.0 APTT 25.1 PTT Ratio 0.9 Sodium 136 Potassium 3.4 L Chloride 105 Carbon Dioxide 23 Anion Gap 8.0 BUN 8 Creatinine 0.85 Est Cr Clr Drug Dosing 108.1 Est GFR ( Amer) 93.3 Est GFR (Non-Af Amer) 80.5 BUN/Creatinine Ratio 8.8 L Glucose 88 Calcium 8.6 Magnesium 2.0 Total Bilirubin 0.5 Direct Bilirubin 0.1 AST 11 L ALT 17 Alkaline Phosphatase 70 Troponin I < 0.015 Total Protein 7.8 Albumin 3.8 Urine Color Urine Appearance Urine pH Ur Specific Brackney Urine Protein Urine Glucose (UA) Urine Ketones Urine Blood Urine Nitrite Urine Bilirubin Urine Urobilinogen Ur Leukocyte Esterase POC Ur Test 11/28/18 11/28/18 16:01 16:01 WBC RBC Hgb Hct MCV MCH MCHC RDW Std Deviation RDW Coeff of Yuliet Plt Count MPV Immature Gran % (Auto) Neut % (Auto) Lymph % (Auto) Boundary % (Auto) Eos % (Auto) Baso % (Auto) Immature Gran # (Auto) Neut # (Auto) Lymph # (Auto) Boundary # (Auto) Eos # (Auto) Baso # (Auto) PT INR APTT PTT Ratio Sodium Potassium Chloride Carbon Dioxide Anion Gap BUN Creatinine Est Cr Clr Drug Dosing Est GFR ( Amer) Est GFR (Non-Af Amer) BUN/Creatinine Ratio Glucose Calcium Magnesium Total Bilirubin Direct Bilirubin AST ALT Alkaline Phosphatase Troponin I Total Protein Albumin Urine Color Yellow Urine Appearance Clear Urine pH 6.0 Ur Specific Brackney 1.006 Urine Protein Negative Urine Glucose (UA) Negative Urine Ketones Negative Urine Blood Negative Urine Nitrite Negative Urine Bilirubin Negative Urine Urobilinogen Negative Ur Leukocyte Esterase Negative POC Ur Test NEG Medications Administered Current Inpatient Medications Acetaminophen (Tylenol) 650 mg PO Q4H PRN PRN Reason: Pain or Fever Stop: 12/28/18 22:00 Aspirin (Ecotrin Ectab) 81 mg PO QAM [facility] Stop: 12/29/18 08:59 Atorvastatin Calcium (Lipitor) 40 mg PO QAM [facility] Stop: 12/29/18 08:59 Duloxetine HCl (Cymbalta) 30 mg PO DAILY [facility] Stop: 12/29/18 08:59 Fluticasone Propionate (Flonase) 2 sprays NA DAILY PRN PRN Reason: Allergic Symptoms Stop: 12/28/18 22:00 Gadobutrol (Gadavist 65ml) 10.5 ml IV ONCE PRN PRN Reason: Interaction Checking Stop: 12/02/18 17:30 Last Admin: 11/28/18 17:32 Dose: 10.5 ml Documented by: Miscellaneous Information (Pharmacist Discharge Med Rec Consult) 1 ea N/A UD PRN PRN Reason: Consult Stop: 12/28/18 22:00 Supervising Physician Co-Signing Physician Notes Pt seen examined in conjunction with resident MD Brooke Nunez. Orders and plan of admission formulated with resident. 48 y/o F Hx HTN, migraines, obese. She has had intermittent episodes of R weakness, loss of coordination and slurred speech. She described a sensation of tongue swelling on the R. She was evaluated 3 days earlier with a negative w/u including a CT. She returns with acute worsening of similar symptoms although they had again, largely resolved at the time of admission. An MRI however, did demonstrate an acute lacunar infarct in the left superior freeman. OE AAO x 3 S1,2 R CTAB NT, ND No CCE Neuro: There is a very slight R pronator drift and LE dorsiflexion weakness on the R. She does not currently display additional deficits P: Placed on ASA and a statin - admitted to telemetry with a CVA protocol - echo pending due to her Hx of migraines Reg her HTN - this has been recently poorly controlled and a second agent (HCTZ) was added to her ZELDA - she was unclear about this and thought that the HCTZ was a substitution. This likely worsened her HTN and contributed to her CVA risk. A neurology consult is pending. Resident Activity Tracking Resident Involvement: Resident Care Provided Care Provided: Adult Hospital Medicine (1) Hypertension Hypertension type: unspecified Qualified Code(s): I10 - Essential (primary) hypertension
[2018-11-29] MEDS ORDERED: POTASSIUM CHLORIDE 20 MEQ TABCR PO ONE (07:00)
[2018-11-29] MEDS ORDERED: DULOXETINE HCL 30 MG CAP PO SCH (09:00)
[2018-11-29] MEDS ORDERED: ENOXAPARIN INJ 40 MG/0.4 ML SYR SQ SCH (09:00)
[2018-11-29] MEDS ORDERED: ASPIRIN 81 MG ECTAB PO SCH (09:00)
[2018-11-29] MEDS ORDERED: ATORVASTATIN 40 MG TAB PO SCH (09:00)
--- NOTE | 2018-11-29 10:00 | Neurology Consultation ---
Date of Consultation November 29, 2018 Assessment & Plan (1) Cerebrovascular accident: This is a 48-year-old right-handed female who presents with subacute right pontine ischemic stroke. Residual neurological deficits include right upper extremity, mostly hand, clumsiness, and some mostly subjective dysarthria and word finding difficulties. Stroke etiology at this time is unclear. Certainly the misunderstanding with hypertension medication could have mildly contributed to her vascular risk factor, but considering her age I feel that this is not the complete answer. Known vascular risk factors include hypertension. Recommendations: Agree with initiation of aspirin 81 mg daily for stroke prevention. Agree with initiation of statin medication for stroke prevention. I have lowered the dose of atorvastatin, as she likely does not need a high dose at this time. Follow-up echocardiogram to see if there is any structural abnormalities on echo to explain her stroke. If no clear abnormalities, would recommend transthoracic echocardiogram and 30-day case monitor as an outpatient for further evaluation. I have sent off a hypercoagulable workup to look for other stroke etiologies in a young patient. Follow-up PT/OT and speech therapies for discharge planning. I anticipate she may need some outpatient therapy Blood pressure recommendations while in hospital 175/95-150/80 (MAPS 90-110) Avoid hypotension and dehydration Stroke risk factor modifications and recommendations: Blood pressure recommendations for the first month post hospital discharge 150/90-130/80, and after that blood pressure recommendations 130/80-110/70 Total cholesterol goal 100- 200 and LDL goal less than 100 (at goal) Hemoglobin A1c goal less than 7 Encourage cardiovascular exercise at least 3 times a week for 30 minutes. Follow-up in neurology clinic in approximately 1 month for reevaluation and to go over hypercoagulable workup. If no clear etiology, may consider referral to strokes specialist. If nothing highly concerning on echocardiogram, no neurological barriers to discharge today. Patient can continue taking [id number] Tylenol or NSAIDs as needed for headache. Would avoid vasoconstrictive medication such as Imitrex or Maxalt, since this could increase her stroke risk. Thank you for allowing me to participant in this patient's care. If there is any questions or concerns, feel free to call/page me. History of Present Illness Reason for Consultation: Stroke Attending Physician: Foreign Tom History of Present Illness This is a 48-year-old right-handed female who presents for the above evaluation. Reports that approximately 5 days ago she woke up with symptoms of slurred speech, word finding difficulty, right upper extremity numbness/tingling and clumsiness as well as feeling off balance. Patient was seen in the emergency room with an unremarkable evaluation and CT of the head. Right upper extremity numbness improved over the next few days, but continued to have slurred speech and clumsiness of the right upper extremity. Balance also improved. There is no specific leg symptoms. She was having some mild blurry vision and mild non- migrainous headaches and return to the emergency room for evaluation. There was some confusion about how she was supposed to be taking her blood pressure medications. At the beginning of the year she reports that her primary care added on hydrochlorothiazide to her lisinopril, but she thought that she was supposed to switch to hydrochlorothiazide. She reports that she was uncertain why this change was made since she thought that her blood pressure was under control. In addition after her emergency room visit on the it looks like there was recommendations to take hydrochlorothiazide, amlodipine, and lisinopril, but again the patient was only taking 1 of these. Patient denies any history of heart attack, stroke, TIA-like symptoms, or blood clots. No history of stroke at a young age or blood clots. Patient does have a history of migraine headaches with aura since she was in the second grade. Reports that she would also sometimes get paresthesias on one side of the body with her migraine headaches, so this is why when she initially had she thought that it could be migraine related. MRI of the brain report and images were reviewed by myself and noted to have a subacute left pontine stroke. MRA of the head and neck was unremarkable. Echocardiogram is pending Hemoglobin A1c is pending Total cholesterol 162, LDL 54, HDL 38, triglycerides 348 Past medical history significant for hypertension, Camille-Danlos syndrome type III with a positive APOLINAR but rheumatological workup was otherwise negative. Anxiety and migraine headaches with aura Family history significant for mother with breast cancer and psoriasis. Family history of migraine headaches. Family history of CAD and hypertension. 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 No tobacco use. Rare alcohol use. Allergies Allergy/AdvReac Type Severity Reaction Status Date / Time No Known Allergies Allergy Verified 11/25/18 10:28 Home Medications Home Medications Medication Instructions Recorded Confirmed Type amlodipine [Norvasc] 10 mg PO DAILY #20 tab 11/25/18 11/28/18 Rx duloxetine [Cymbalta] 30 mg PO DAILY 11/25/18 11/28/18 History fluticasone [Flonase Allergy 2 spray INTRANASAL DAILY 11/25/18 11/28/18 History Relief] hydrochlorothiazide 12.5 mg PO DAILY 11/25/18 11/28/18 History Appetite Supressant Gtts 5 drp PO TID 11/28/18 11/28/18 History lisinopril 0 mg PO DAILY 11/28/18 11/28/18 History Patient History Medical History IBS (irritable bowel syndrome) (Chronic) Hypertension (Chronic) Social History Preferred Language: Luxembourgish Research And Development Technician Required: No marital status: Current Living Situation: Spouse current occupational status: employed Feels Safe at Home: Yes Safety Concerns: Feels Safe At This Time Smoking Status: Never smoker Hx Alcohol Use: Yes ("1-2 drinks every 2 weeks") Hx Substance Use: No Review of Systems Patient did note some heart palpitations earlier this week. Complete review of systems otherwise negative except for the above-noted in HPI Physical Exam Vital Signs (Past 24 Hours): Last Vital Signs Temp 36.9 C 11/29/18 07:40 Pulse 78 11/29/18 07:40 Resp 16 11/29/18 07:40 BP 160/111 H 11/29/18 07:40 Pulse Ox 98 11/29/18 07:40 Physical Exam: Gen.: Patient is alert and oriented in no acute distress lying in bed Heart: Regular rate and rhythm Extremities: No gross deformities or rashes noted Neurological examination: Mental status: Patient is alert and oriented to person place and time. Able to give his own history. Good fund of knowledge. Attention concentration normal for the situation. Remote and recent memory intact Speech is fluent without any dysarthria or aphasia noted Cranial nerves: Visual grewal intact to confrontation. Funduscopic examination was unremarkable no signs of papilledema. Pupils equally round and reactive to light. Extraocular muscles intact without nystagmus. No facial asymmetry noted. Facial sensation intact. Tongue midline. Good palatal elevation. Good shoulder shrug bilaterally. Hearing grossly intact voice. Strength: 5/5 both proximal and distal in all extremities. No pronator drift. Tone is normal. Sensation: Grossly intact to light touch in all extremities Deep tendon reflexes: +2 in bilateral biceps and patellar. Toes are upgoing on the right Coordination: Patient has good finger to nose and heel to godinez without dysmetria or ataxia. Station within the bed is normal. Gait was within normal limits. No signs of ataxia (1) Cerebrovascular accident CVA mechanism: unspecified Qualified Code(s): I63.9 - Cerebral infarction, unspecified
[2018-11-29] MEDS ORDERED: AMLODIPINE BESYLATE 5 MG TAB PO ONE (14:00)
--- NOTE | 2018-11-29 14:53 | Discharge Summary ---
Date of Service November 29, 2018 Admission HPI Per Admitting Provider Ms. Shelton is a 48 year old right-handed female with a history of hypertension, depression, IBS who presents to the emergency department due to a 4-day history of weakness and clumsiness in her right hand, slurred speech, difficulty with word finding, headache and feeling off balance. She was seen in the emergency department 3 days ago [on 11/25], and underwent a head CT at this time which was negative. She returned to the emergency department due to persisting and worsening symptoms. 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 She states that she had problems with typing, as well as using her mouse. She initially attributed her right hand symptoms to a fall that she had onto her right arm approximately 3 weeks ago, where she slipped and fell onto the ice. She denied hitting her head, or any loss of consciousness at that time. Her right elbow x-ray, done at her prior ED visit, did not show any fractures. She also noted that she has had a dull, left-sided, mild occipital headache. She states that she has a history of migraines, however this headache was different. It improved with Tylenol. It was associated with her feeling off balance, having "spots in her vision." She also endorses intermittent tunnel vision, brought on by the lights in her office setting, but denies a sensation of having a curtain coming across her vision. Her naval architect in the ED also noted that she has had trouble with word finding, and slurred speech. The patient denies having difficulty with understanding what others are saying to her, but states that she has had difficulty with finding the correct word. With regards to Ms. Shelton's history of hypertension, she was prescribed lisinopril for this. She recently saw her PCP who added hydrochlorothiazide to optimize her BP management, however due to a misunderstanding, she did not take both medications, but only took the hydrochlorothiazide. During her last ED visit, the ED physician also added Norvasc to her regimen. She was meant to take all 3, however only took the Norvasc, as she did not realize she was meant to take all 3 medications. She states that she takes her blood pressure at home - she does not remember her exact readings, but states that they are generally less than 140/90. Denies a history of hypercholesterolemia, diabetes mellitus, prior TIA or stroke. She states that she has a history of APOLINAR elevation, and was seeing a form drafter at [facility], to work this up further, in order to see if there was a common cause with her bilateral lower extremity neuropathy, IBS, and migraines. She states that she does not have a family history of CVA. Her mother has a history of hypercholesterolemia and psoriatic arthritis. Her grandmother of an [place], and her grandmother siblings have all had cardiovascular disease. She has 2 sisters, who are alive and well. Ms. Shelton has been attempting to make lifestyle changes regarding her weight. She recently started Chirothin, and has been on this diet for a week. She denies a history of smoking or recreational drug use. She consumes alcohol infrequently. Admission Exam Per Admitting Provider Constitutional: WD/WN, vitals as above + obese, cooperative and comfortable Eyes: PERRL, conjunctivae normal, anicteric sclerae ENMT: external ear and nose normal, oropharynx normal Respiratory: normal respiratory effort, lungs clear to auscultation Cardiovascular: RRR, no murmur, no edema Gastrointestinal (Abdomen): normal bowel sounds, soft, nontender, no hepatosplenomegaly Neurologic: patellar DTR's 2+ bilat, sensation intact + focal motor deficit (minimally decreased strength w/right hand oil processing technician and right foot dorsiflexion) Speech / Cognition: normal speech (occasionally pauses to recall a word, however no slurred speech) Motor/Sensory: + pronator drift (mild on right hand side); no tremor Cranial Nerves: PERRL, normal accommodation, EOM intact bilaterally, normal facial strength, able to elevate shoulders bilaterally and no nystagmus Coordination: normal gyxdyc-bi-vbpy test, normal jyty-jw-nacy test and normal rapid alternating movements Psychiatric: A+Ox3, euthymic affect Principal Diagnosis Acute lacunar infarct in the left superior freeman Discharge Exam Constitutional WD/WN, vitals as above cooperative and comfortable Eyes PERRL, conjunctivae normal, anicteric sclerae EOM intact bilaterally ENMT external ear and nose normal, oropharynx normal Neck normal visual inspection and trachea midline Respiratory normal respiratory effort, lungs clear to auscultation Cardiovascular RRR, no murmur, no edema Musculoskeletal Head/Neck/Chest: normocephalic and head atraumatic Skin no rashes, warm and dry Neurologic moves all extremities and awake Speech / Cognition: normal speech, no expressive aphasia and no receptive aphasia Cranial Nerves: EOM intact bilaterally, normal facial strength, tongue midline, able to rotate head bilaterally, able to elevate shoulders bilaterally and symmetric palate elevation Coordination: normal guqjsp-ow-xlys test and normal lwzc-dw-oekc test CN 2-7, 9-12 normal; 5/5 upper extremity strength to flexion/extension at elbow; no motor deficits to plantar and dorsi flexion; no sensory deficits; mildly decreased right hand oil processing technician as compared to left. Psychiatric Orientation: alert Affect: euthymic affect Discharge Data Allergies Allergy/AdvReac Type Severity Reaction Status Date / Time No Known Allergies Allergy Verified 11/25/18 10:28 Consultations 11/28/18 20:01 ED Decision to Admit Stat 11/28/18 22:01 Consult Case Management - Discharge Planning Routine Consult Neurology Routine Ordered Studies 11/28/18 15:47 MR angio head wo con Stat IMPRESSION: 1. No significant stenosis, aneurysm, or focal vessel occlusion. 11/28/18 15:53 MR angio neck wo/w con Stat IMPRESSION: No significant stenosis, occlusion, or dissection identified within the carotid or vertebral arteries. 11/28/18 15:57 MR brain wo/w con Stat IMPRESSION: 1. Acute lacunar infarct in the left superior freeman, likely at least 6 to 12 hours given the presence of associated T2/FLAIR hyperintensity. 2. No abnormal parenchymal enhancement. Echocardiogram - Grade I diastolic dysfunction, otherwise normal. Hospital Course (1) CVA (cerebral vascular accident): Ms. Shelton is a 48 year old right-handed female with a history of hypertension, depression, IBS who presents to the emergency department due to a 4-day history of weakness and clumsiness in her right hand, slurred speech, difficulty with word finding, headache and feeling off balance. -admitted to telemetry -Brain MRI showed acute lacunar infarct in left superior freeman -Head and neck MRA without significant findings -Neurology consulted and ordered hyper coagulation workup, okay with patient being discharged home, will see patient for follow up in one month -Fasting lipid panel and HbA1c ordered for the morning - only showed elevated triglycerides; A1C was 5.3; will go home on Atorvastatin 10mg PO qHS -ECHO ordered - Grade I diastolic dysfunction, no shunt. -Blood pressure elevated on arrival, gave Amlodipine 10mg prior to discharge home -Begin aspirin and Atorvastatin 10mg PO per recommendations of neurology Hypertension -Patient apparently on lisinopril, hydrochlorothiazide, amlodipine - patient has not been taking all 3 prior to admission. -Held for permissive hypertension then restarted amlodipine on day of discharge; however will take lisinopril 10mg after discharge as patient states BP was controlled on this prior to admission. - Will see Dr. Quinteros in the office on Sunday and she will keep BP journal over weekend. Anxiety -continue home duloxetine Ehler-Danos Syndrome -Per review of outpatient records, patient reportedly has a history of hypermobility w/Ehler Danos type III syndrome, w/out vascular or skin involvement -Patient has also had extensive inflammatory and autoimmune workup done by rheumatology. She has had negative APOLINAR, normal sed rate, negative CCP, negative rheumatoid factor. IBS -no symptoms reported currently (2) Hypertension: (3) IBS (irritable bowel syndrome): (4) Anxiety: Total Time Total Time Spent Total Time Spent (In Minutes): 30 Total Time Includes: Examination of the Patient, Discharge Planning, Medication Reconciliation and Communication With Other Providers Discharge Plan Discharge Items Patient Disposition: Home - Self-Care Reason For Visit: CVA Discharge Diagnosis: CVA Condition: Good Discharge Goals: Improve disease control, Improve function and Therapeutic intervention Activity: Per 'Additional Instructions' section Non-emergency contact: Primary Care Provider Call non-emergency contact if: you have any medication questions and your symptoms worsen Follow-up/Referrals: Lonnie Quinteros MD [Resident] - 12/02/18 2:50 pm (An appointment has been made on your behalf with [facility]. Please call the office with any questions or concerns. Thank you! ) Diet: Regular Addtl Provider Instructions: You were admitted because you had a cerebral vascular accident (stroke), there was a lacunar stroke found on the MRI in the Emergency department located to the left superior freeman. This was the cause of your symptoms. If you are experiencing one sided weakness, numbness, slurred speech, please call 911 for evaluation at the Emergency department. For your high blood pressure: - keep a journal until follow up appointment of readings, use left arm. - resume Lisinopril 10mg PO - at your follow up appointment, we can discuss further medication. You will start two new medications: Atorvastatin 10mg PO (by mouth) qHS (prior to bed) Aspirin 81mg PO qAM (in the morning) Contact your HR office for FMLA paperwork that we can complete at your follow- up. We will also give you a physical therapy referral at that time. I would recommend discontining the weight loss/appetite suppressant until follow-up. Then, we can discuss the risks/benefits. Prescriptions: New atorvastatin 10 mg Tablet 10 mg PO HS 30 Days Qty: 30 RF: 0 aspirin [Ecotrin Low Strength] 81 mg Tablet,Delayed Release (Dr/Ec) 81 mg PO QAM 30 Days Qty: 30 RF: 0 atorvastatin 10 mg tablet 10 mg PO HS Qty: 30 RF: 0 aspirin 81 mg tablet,delayed release (DR/EC) 81 mg PO DAILY Qty: 30 RF: 0 Continued fluticasone [Flonase Allergy Relief] 50 mcg/actuation [place],Suspension 2 spray INTRANASAL DAILY RF: 0 duloxetine [Cymbalta] 30 mg Capsule,Delayed Release(Dr/Ec) 30 mg PO DAILY RF: 0 lisinopril 10 mg Tablet PO DAILY RF: 0 Discontinued hydrochlorothiazide 12.5 mg Tablet 12.5 mg PO DAILY RF: 0 amlodipine [Norvasc] 10 mg tablet 10 mg PO DAILY Qty: 20 RF: 0 Appetite Supressant Gtts 5 drp PO TID RF: 0 Stand-Alone Forms: Medications to Prevent Stroke, [facility]/Other Patient Handouts: Stroke Dc, Stroke Prevent Healthy Lifestyle Discharge Orders: Discharge Order (Routine); Ordered 11/29/18 Ordered By: Lucio Dee Admission Data Admit Date/Time: 11/28/18 20:00 Attending Provider: Foreign Tom Admit Provider: Roshni Nunez Primary Care Provider: Luc Almanzar Other Providers: Luc Sewell ; Lonnie Nelson III ; Ansley Wylie ; Dipti Osei ; Dion Chacon Roy Service: Telemetry Other Interventions: Discharge Summary Assessment (RN) Last Done: 11/29/18 15:13 Supervising Physician Co-Signing Physician Notes Patient seen and examined with Dr. Dee. Reviewed H&P and emergency department course. Agree with history, exam findings, assessment and plan of care as outlined by Dr. Dee. In brief, Mrs. Shelton is a very pleasant 48 year old female with hx of prior complex migraine, EDS type 3, HTN, anxiety, and IBS admitted with 4 days of right UE weakness, clumsiness, slurred speech, word finding difficulties found to have an acute lacunar infarct in the left superior freeman by MRI. MRA head and neck do not show stenosis or vascular abnormalities. Cholesterol is not significantly elevated and A1C not consistent with pre-DM or DM. Started on ASA and high intensity statin (atorvastatin 40mg, but decreased to 10mg). Echo without shunt. Neuro ordered hypercoag panel. HTN: previously on lisinopril, HCTZ, amlodipine. Given 10mg amlodipine this afternoon, but will continue with lisinopril as an outpatient as she reports BPs were controlled on this. Close follow up (changing PCP to [facility]) for BP monitoring. Appt scheduled for Sunday. If needs FMLA done, can be done by new PCP in the office. All other chronic medical conditions stable and home medications continued.
[2018-11-29] MEDS ORDERED: STROKE PATIENT DISCHARGE STA (15:08)
--- NOTE | 2018-11-29 15:28 | Pharmacy Report ---
Pharmacist Stroke Counseling - Date of Service November 29, 2018 - Scope: Pharmacy has been consulted to provide medication discharge counseling for this patient admitted with ischemic stroke as per the Pharmacist Discharge Counseling for Stroke Patients Protocol. - Medications on Discharge: Home Medications Medication Instructions Recorded Confirmed duloxetine [Cymbalta] 30 mg PO DAILY 11/25/18 11/28/18 fluticasone [Flonase Allergy 2 spray INTRANASAL DAILY 11/25/18 11/28/18 Relief] lisinopril 0 mg PO DAILY 11/28/18 11/28/18 New Rx's Medication Instructions Recorded aspirin 81 mg PO DAILY #30 tab 11/29/18 aspirin [Ecotrin Low Strength] 81 mg PO QAM 30 Days #30 tab 11/29/18 atorvastatin 10 mg PO HS #30 tab 11/29/18 atorvastatin 10 mg PO HS 30 Days #30 tab 11/29/18 - Action: The above medications, specifically ones for stroke treatment/prophylaxis, have been reviewed in detail with the patient prior to discharge. This includes indication, common adverse reactions, drug interactions, and medication administration. Medication counseling has been employed using the teach-back method to ensure understanding. - Outcome: The patient has demonstrated understanding of the medications. Please note, they are aware that the pharmacist will call them within 72 hours post-discharge to confirm that the appropriate medications are being taken and answer any further medication related questions the patient might have at that time. Contact information Individual to be contacted: patient Phone number: [phone] Best time to call: anytime Additional comments: patient was a little confused on the names of her medications, I reviewed them and circled them on her discharge papers, while she read them with me. We will review them with her again during her phone call and ensure she has stopped taking her amlodipine and hydrochlorothiazide. Thank you for allowing pharmacy to be involved in the care of this patient. Please call [phone] or [phone] with any additional questions
[2018-11-30] MEDS ORDERED: ATORVASTATIN 10 MG TAB PO SCH (09:00)
--- NOTE | 2018-12-02 10:30 | Pharmacy Report ---
Pharmacist Post D/C Phone Note - Phone Note: Date of phone call: December 02, 2018. Individual with whom pharmacist spoke to: SALLIE ERICKSON The following questions were reviewed during the phone call with responses listed below each: Can you tell me the medications that you are currently taking as well as when and how you take each medication? -See Table Below When have you missed any doses of your medications? - none reported What side effects are you having from your medications, specifically, the new medications you were started on? - none - talked about possible side effects of newer medications and things to monitor for What questions do you have about your medications? - none What problems are you having obtaining your medications? - none When is your next appointment with your primary care doctor? - will be this week. she is in process of getting new PCP doctor so she is setting up appt with new doctor for this week Additional comments: -Patient able to tell me the names of medications she is taking at home. Verified that she is no longer taking the HCTZ and the norvasc. Verified strength of lisinopril she takes at home is 20 mg (listed as 0 mg on discharge summary). She stated that those medication bottles (discontinued one) are in a separate area from her current medications. She has a blood pressure monitor at home that she has been using to monitor blood pressure and states that the results are uploaded onto her phone which she plans to bring to her next doctor's visit. Denies any light headedness/dizziness, feeling better but a little tired. Recommended that she bring an updated medication list with her to her new doctors appt this week. As per the Pharmacist Discharge Counseling for Stroke Patients Protocol, this phone call has been completed within 72 hours of discharge. Thank you for allowing us to be involved in the care of this patient. - Home Medications: Home Medications Medication Instructions Recorded Confirmed duloxetine [Cymbalta] 30 mg PO DAILY 11/25/18 11/28/18 fluticasone [Flonase Allergy 2 spray INTRANASAL DAILY 11/25/18 11/28/18 Relief] lisinopril 20 mg PO DAILY 11/28/18 11/28/18 New Rx's Medication Instructions Recorded aspirin 81 mg PO DAILY #30 tab 11/29/18 aspirin [Ecotrin Low Strength] 81 mg PO QAM 30 Days #30 tab 11/29/18 atorvastatin 10 mg PO HS #30 tab 11/29/18 atorvastatin 10 mg PO HS 30 Days #30 tab 11/29/18
== END 2018-11-29 15:30 | disposition home or self-care (01) | DRG 65 ==
LOC: ED 15:09 → SUATTDRO 20:00 → 2E 20:00
DX: K58.9 Irritable bowel syndrome, unspecified; I10 Essential (primary) hypertension; Z82.49 Family history of ischemic heart disease and other diseases of the circulatory system; Z79.899 Other long term (current) drug therapy; R29.700 NIHSS score 0; T46.4X6A Underdosing of angiotensin-converting-enzyme inhibitors, initial encounter; R51 Headache; R20.0 Anesthesia of skin; Z91.138 Patient's unintentional underdosing of medication regimen for other reason; T50.2X6A Underdosing of carbonic-anhydrase inhibitors, benzothiadiazides and other diuretics, initial encounter; G83.21 Monoplegia of upper limb affecting right dominant side; Q79.6 Ehlers-Danlos syndromes; I63.81 Other cerebral infarction due to occlusion or stenosis of small artery; R47.81 Slurred speech; F41.9 Anxiety disorder, unspecified; R47.1 Dysarthria and anarthria

== ENCOUNTER 2022-03-29 19:12 | Inpatient (IN) ==
[2022-03-29] MEDS ORDERED: ONDANSETRON INJ 2 MG/ML 2 ML VIAL IV STA (19:20)
[2022-03-29] MEDS ORDERED: SODIUM CHLORIDE 0.9% 1000ML 1,000 ML IV ONE (19:20)
[2022-03-29] MEDS ORDERED: KETOROLAC TROMETHAMINE 15 MG/ML VIAL IV STA (19:20)
[2022-03-29 20:10] LABS: Basophils # (auto) 0.03 K/uL (0-0.2); Basophils % (auto) 0.2 %; Eosinophils # (auto) 0.25 K/uL (0-0.5); Eosinophils % (auto) 1.6 %; Hematocrit (blood only) 40.9 % (37-47); Hemoglobin 13.4 g/dL (12.0-16.0); Immature Granulocytes # (auto) 0.05 K/uL (0.00-0.02); Immature Granulocytes % (auto) 0.3 %; Lymphocytes # (auto) 2.46 K/uL (1.2-3.4); Lymphocytes % (auto) 15.5 %; Mean Corpuscular Hgb Conc 32.8 g/dL (32-36); Mean Corpuscular Volume 97.6 fL (80-100); Monocytes # (auto) 1.08 K/uL (0.11-0.59); Monocytes % (auto) 6.8 %; Neutrophils # (auto) 11.98 K/uL (1.4-6.5); Neutrophils % (auto) 75.6 %; Platelet Count 387 K/uL (130-400); RDW Coefficient of Variation 13.5 % (11.5-14.5); RDW Standard Deviation 48.1 fL (36.4-46.3); Red Blood Count 4.19 M/uL (4.2-5.4); White Blood Count 15.85 K/uL (4.8-10.8)
[2022-03-29 20:14] LABS: Appearance Urine Cloudy (Clear); Bacteria Urine Automated 1+ (Negative); Bilirubin Urine Negative (Negative); Blood Urine Negative (Negative); Color Urine Yellow; Epithelial Cell Urine Auto >30 /lpf (0-5); Glucose Urine UA Negative (Negative); Ketones Urine Negative (Negative); Leukocyte Esterase Urine 1+ (Negative); Nitrite Urine Negative (Negative); Protein Urine Negative (Negative); RBC Urine Automated 0-4 /hpf (0-4); Specific Gravity Urine 1.017 (1.000-1.030); Urobilinogen Urine Negative (Negative); pH Urine 6.5 (4.5-7.5)
[2022-03-29 20:17] LABS: Est GFR (African American) 74.1 ml/min; Potassium 3.6 mmol/L (3.5-5.1)
[2022-03-29 20:18] LABS: BUN Creatinine Ratio 12.9 (10-20); Bilirubin Direct 0.1 mg/dl (0-0.2); Bilirubin,Total 0.6 mg/dl (0.2-1.0); Calcium 9.1 mg/dl (8.5-10.1); Creatinine Clr Calc Pharmacy 88.9 ml/min; Total Protein 6.9 gm/dl (6.0-8.3)
[2022-03-29] MEDS ORDERED: OPTIRAY 320 100ml IV ONE (20:30)
--- NOTE | 2022-03-29 21:02 | CT Scan Report ---
ABDOMEN AND PELVIS CT WITH IV CONTRAST CT DOSE: 1474.02 mGy.cm HISTORY: Acute generalized abdominal pain abd pain feels like diverticulitis TECHNIQUE: Multiaxial CT images of the abdomen and pelvis were performed following the IV administrat ion of 93 cc of Optiray, A dose lowering technique was utilized adhering to the principles of ALARA. COMPARISON STUDY: CT abdomen and pelvis 07/22/2017 FINDINGS: There is mild subsegmental bibasilar atelectasis. Right hemidiaphragmatic elevation. No pne umatosis or pneumoperitoneum. Unremarkable spleen, pancreas and adrenal glands. There is circumferent ial wall thickening of the gallbladder with pericholecystic inflammation and trace free fluid. Mildly enlarged periportal and precaval lymph nodes measure up to 11 mm. Unremarkable liver. There is paten cy of the hepatic and portal veins. Unremarkable kidneys and urinary bladder. IUD appears to be in satisfactory positioning. Cystic foci of the left ovary measure up to 1.4 cm. The aorta and IVC appear unremarkable. Tiny hiatal hernia. Mi ld wall thickening of the duodenum. Trace free pelvic fluid. Normal appendix. Unremarkable soft tissu es. No acute fracture. IMPRESSION: 1. Findings compatible with acute cholecystitis. Surgical consultation recommended. 2. No biliary ductal dilation. 3. Mild periportal and precaval adenopathy with mild duodenal wall thickening is likely reactive. 4. No bowel obstruction. Normal appendix. ACT 112: Negative or not required by law. The above report was generated using voice recognition software. It may contain grammatical, syntax o r spelling errors. Electronically signed by: Leonel Martino M.D. 03/29/2022 9:00 PM
[2022-03-29] MEDS ORDERED: metroNIDAZOLE 500 MG/100 ML BAG IV STA (21:14)
[2022-03-29] MEDS ORDERED: cefTRIAXone SODIUM 2,000 MG/70 ML BAG IV STA (21:14)
--- NOTE | 2022-03-29 21:47 | Surgery Consultation ---
Date of Consultation March 29, 2022 Assessment & Plan (1) Acute cholecystitis: The patient will be admitted to the hospital we proceed as follows. Analgesia will be provided Antiemetics will be provided We will hydrate with IV fluids We will check repeat labs in the morning We will check an ultrasound of the gallbladder for better delineation of her biliary anatomy and also to check for the presence of gallstones. Will continue antibiotics. The treating emergency room physician has used Rocephin and Flagyl which we will continue The patient will be allowed clear liquids but made n.p.o. after midnight We have tentatively plan for cholecystectomy tomorrow with Dr. Galvan. I have outlined the risks, benefits, alternatives, and expected postoperative course and she wished to proceed Additional recommendations be forthcoming based on operative findings and her postoperative recovery We will use SCDs for DVT prevention, no chemical means due to planned surgery She will be a level 1 full code History of Present Illness Reason for Consultation: Cholecystitis History of Present Illness This is a 51-year-old female who presented to [facility] secondary to abdominal pain. Patient notes that her pain began approximately 2 days ago and is mostly in a generalized fashion in her abdomen with radiation to her back. I did ask her to pinpoint the pain and she notes it is mostly in the epigastric and right upper quadrant. Patient does report some nausea and vomiting but denies any fevers, shakes, or chills. Patient notes that the pain is improved for short while after she vomits but only returns. She does not note any provocative factors and specifically relates that it is unrelated to meals. With the patient's emesis she denies any hematemesis. She also denies any diarrhea. Patient does relate that she has had similar pain approximately 3 times in the past month but usually self resolve so therefore she did not seek medical attention. She does report she had a history of diverticulitis in the past and felt that this was the cause of her pain. She reports she has had prior abdominal surgeries in the form of 2 C-sections. Her most recent solid food intake was at 1:00 PM today but she has been drinking water throughout the day. In the emergency department the patient had labs and imaging which I i ndependently reviewed. She had a CT scan of the abdomen and pelvis that showed no evidence of pneumatosis or pneumoperitoneum. There is a circumferential wall thickening of the gallbladder with some pericholecystic inflammation and trace fluid. These findings were concerning for acute cholecystitis. Labs include a CBC her white blood cell count was 15.8. Hemoglobin, hematocrit and platelet co unt were all normal. Chemistry profile showed sodium was 134. Potassium was 3.6. BUN and creatinine were both normal. There is no elevation of her bilirubin or transaminases. Her alkaline phosphatase and lipase are also not elevated. Urinalysis did show 10-30 white blood cells per high-power field and 1+ leukocyte Estrace. There is 1+ bacteria on the specimen and it was negative for nitrite. A test was noted to be negative. An EKG showed normal sinus rhythm without changes indicative of acute ischemia. Chest x-ray showed no evidence of pleural effusions or pneumonia. A COVID test is pending. The patient does report a history of a stroke approximate 3 to 4 years ago at which time she had difficulty with speech as well as some right-sided weakness. She notes that this was related to elevated blood pressure and notes that she has made almost a 100% recovery. She reports that she does have some difficulties with memory recall at times. At the time of my interview she notes that her pain had improved and she was in no distress. Allergies Allergy/AdvReac Type Severity Reaction Status Date / Time No Known Allergies Allergy Verified 03/29/22 20:15 Home Medications Medication Instructions Recorded Confirmed Type fluticasone propionate 50 2 spray INTRANASAL DAILY PRN 11/25/18 03/29/22 History mcg/actuation nasal spray,suspension (Flonase Allergy Relief) ferrous sulfate 325 mg (65 mg 325 mg PO DAILY 06/16/20 03/29/22 History iron) tablet lisinopril 20 mg tablet 20 mg PO QAM #90 tab 11/10/21 03/29/22 Rx hydrochlorothiazide 12.5 mg capsule 12.5 mg PO QAM #90 cap 11/18/21 03/29/22 Rx aspirin 81 mg tablet,delayed 81 mg PO QAM #90 tab 12/26/21 03/29/22 Rx release venlafaxine 100 mg tablet 100 mg PO DAILY #30 tab 12/26/21 03/29/22 Rx cholecalciferol (vitamin D3) 50 50 mcg PO DAILY #90 cap 01/02/22 03/29/22 Rx mcg (2,000 unit) capsule pantoprazole 40 mg tablet,delayed 40 mg PO DAILYBB 03/29/22 03/29/22 History release Patient History Medical History Chondromalacia, patella Colon polyps TVA 2011 CVA (cerebral vascular accident) Diverticulitis Dysphagia Iliotibial band syndrome Menorrhagia Stroke 11/28/2018 MINI STROKE -- NO RESIDUAL EFFECTS Surgical History H/O section X 2 H/O colonoscopy (11/2019) History of esophagogastroduodenoscopy (EGD) (11/2019) Family History Uncle Colorectal cancer Aunt Colorectal cancer Mother Breast cancer Other Cancer Heart disease Hypertension Denies family history of Ovarian cancer Prostate cancer Crohn's disease Myocardial infarction Ulcerative colitis Social History Smoking Status: Never smoker Second Hand Exposure: No; Hx Alcohol Use: Yes Alcohol type: beer, wine and hard liquor Alcohol Intake Frequency: Monthly or Less Hx Substance Use: No Preferred Language: [place] Islander Communication Ability: Effective Visual Impairment: No Limitations Hearing Ability: Normal Biofuels Production Technician Required: No Beliefs That Will Affect Care: None marital status: Current Living Situation: Alone current occupational status: employed 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 [email or web address] How many Children do You have: 2 Feels Safe at Home: Yes Childhood Exposure to Second-Hand Smoke: No caffeine: Yes during the past year weight has: remained stable Dental Care, Regularly: Yes Physical Activity Frequency: Does not Exercise Seatbelt Use: always Sunscreen Use: Yes Assistive Devices: Glasses Review of Systems Constitutional: no fever and no chills Eyes: no eye pain Ear, Nose, Mouth, Throat: no ear pain Respiratory: no cough and no dyspnea Cardiovascular: no chest pain Gastrointestinal: as per Subjective / HPI, + abdominal pain, + nausea and + vomiting Genitourinary: no dysuria Musculoskeletal: + back pain (Radiating from abdomen) Integumentary: no rash Neurologic: no localized weakness Physical Exam Constitutional: well developed and well nourished; no acute distress Eyes: + anicteric sclerae ENMT: Ears: no external ear abnormality No sublingual jaundice noted Neck: trachea midline Respiratory: normal respiratory effort, lungs clear to auscultation Cardiovascular: Rate/Rhythm: regular rate and regular rhythm Gastrointestinal (Abdomen): Abdomen is rotund and soft. Bowel sounds are present. There is no rebound tenderness or guarding. There was pain with palpation in the epigastric area as well as right upper quadrant. Smith sign was noted to be positive. Musculoskeletal: No calf tenderness Skin: no rashes Neurologic: moves all extremities Patient is able to move all 4 extremities without any noted focal deficits. Cranial nerves II through XII are intact. Her speech is coherent and nongarbled. Psychiatric: A+Ox3, euthymic affect Results & Data ([facility]) Vital Signs (Past 12 Hours) Vital Signs Temp Pulse Pulse Resp BP BP Pulse Ox 03/29/22 21:25 95 H 18 139/87 98 03/29/22 20:18 100 H 17 147/94 H 95 03/29/22 19:43 91 H 18 96 03/29/22 19:15 36.7 C 98 H 20 172/105 H 98 PG Care Time/CCT Total # of Minutes Spent Total Time Spent with Patient: Total time spent is greater than 50% in coordination of care (as documented) at patient's floor/unit and/or counseling patient: Coding Level of Care Code 08360 Inpt Consult Level 5 Diagnoses Acute cholecystitis K81.0
[2022-03-29] MEDS ORDERED: ONDANSETRON INJ 2 MG/ML 2 ML VIAL IV PRN (21:56)
[2022-03-29] MEDS: MoRPHine SULFATE 4 MG/ML 1 ML CARP\\VIAL IV PRN (22:09)
[2022-03-29 22:47] LABS: Albumin Globulin Ratio 1.3 (0.9-2); Albumin Level 3.8 gm/dl (3.4-5.0); BUN Creatinine Ratio 11.5 (10-20); Bilirubin,Total 0.5 mg/dl (0.2-1.0); Calcium 8.5 mg/dl (8.5-10.1); Creatinine Clr Calc Pharmacy 86.3 ml/min; Est GFR (African American) 71.5 ml/min; Est GFR (Non-African American) 61.7 ml/min; Globulin 2.9 gm/dl (2.5-4.0); Potassium 3.7 mmol/L (3.5-5.1); Total Protein 6.7 gm/dl (6.0-8.3)
--- NOTE | 2022-03-29 23:21 | Emergency Department Note ---
History of Present Illness General Chief Complaint: Abdominal Pain Stated Complaint: SEVERE STOMACH PAIN (DIVERTICLITIS) Time Seen by Provider: 03/29/22 19:20 History of Present Illness Provider Complaint: abdominal pain Onset (ago): 2 day(s) Pain Consistency: intermittent Location: epigastric Radiation: none Severity: moderate Maximum Pain Intensity: 8 Current Pain Intensity: 8 Quality: + stabbing and + sharp Relieved By: + nothing Exacerbated By: + nothing Context: + history of similar episodes (Feels like previous diverticulitis.); no foreign travel, no possible food poisoning, no sick contacts, no recent antibiotic use, no recent surgery/procedure or no recent injury Associated Symptoms: + nausea; no vomiting, no diarrhea, no fever, no chills, no constipation, no dysuria, no hematemesis, no hematochezia, no melena, no hematuria, no anorexia, no syncope, no headache, no neck pain, no back pain and no chest pain Related Data Patient Confirmed : No Home Medications Medication Instructions Recorded Confirmed Type fluticasone propionate 50 2 spray INTRANASAL DAILY PRN 11/25/18 03/29/22 History mcg/actuation nasal spray,suspension (Flonase Allergy Relief) ferrous sulfate 325 mg (65 mg 325 mg PO DAILY 06/16/20 03/29/22 History iron) tablet lisinopril 20 mg tablet 20 mg PO QAM #90 tab 11/10/21 03/29/22 Rx hydrochlorothiazide 12.5 mg capsule 12.5 mg PO QAM #90 cap 11/18/21 03/29/22 Rx aspirin 81 mg tablet,delayed 81 mg PO QAM #90 tab 12/26/21 03/29/22 Rx release venlafaxine 100 mg tablet 100 mg PO DAILY #30 tab 12/26/21 03/29/22 Rx cholecalciferol (vitamin D3) 50 50 mcg PO DAILY #90 cap 01/02/22 03/29/22 Rx mcg (2,000 unit) capsule pantoprazole 40 mg tablet,delayed 40 mg PO DAILYBB 03/29/22 03/29/22 History release Allergies Allergy/AdvReac Type Severity Reaction Status Date / Time No Known Allergies Allergy Verified 03/29/22 20:15 Past Med/Surg History Medical History Chondromalacia, patella Colon polyps TVA 2011 CVA (cerebral vascular accident) Diverticulitis Dysphagia Iliotibial band syndrome Menorrhagia Stroke 11/28/2018 MINI STROKE -- NO RESIDUAL EFFECTS Surgical History H/O section X 2 H/O colonoscopy (11/2019) History of esophagogastroduodenoscopy (EGD) (11/2019) Family History Uncle Colorectal cancer Aunt Colorectal cancer Mother Breast cancer Other Cancer Heart disease Hypertension Denies family history of Ovarian cancer Prostate cancer Crohn's disease Myocardial infarction Ulcerative colitis Social History Smoking Status: Never smoker Second Hand Exposure: No; Hx Alcohol Use: Yes Alcohol type: beer, wine and hard liquor Alcohol Intake Frequency: Monthly or Less Hx Substance Use: No Preferred Language: Georgian Communication Ability: Effective Visual Impairment: No Limitations Hearing Ability: Normal Employment Legal Assistant Required: No Beliefs That Will Affect Care: None marital status: Current Living Situation: Alone current occupational status: employed 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 [employer] How many Children do You have: 2 Feels Safe at Home: Yes Childhood Exposure to Second-Hand Smoke: No caffeine: Yes during the past year weight has: remained stable Dental Care, Regularly: Yes Physical Activity Frequency: Does not Exercise Seatbelt Use: always Sunscreen Use: Yes Assistive Devices: Glasses Review of Systems A total of 10 systems reviewed and were otherwise negative Physical Exam 2 Vital Signs: Vital Signs - 24 hr 03/29/22 19:15 03/29/22 19:43 03/29/22 20:18 Temperature 36.7 C Temperature Source Temporal Artery Sc an Pulse Rate 98 H 91 H Pulse Rate [Finger ] 100 H Respiratory Rate 20 18 17 Respiratory Effort / Characteristics Non-Labored Sponta neous Non-Labored Sponta neous Respiratory Depth Normal Normal Blood Pressure 172/105 H Blood Pressure [Le ft Arm] 147/94 H Blood Pressure Maria E n 127 Blood Pressure Maria E n [Left Arm] 111 Blood Pressure Pos ition [Left Arm] Lying Pulse Oximetry 98 96 95 Oxygen Delivery Me thod Room Air Room Air Room Air Sepsis Recent Feve r Within 48 Hours No Sepsis New/Unexpla ined Change in Men rose mary Status N/A Sepsis Action Take n by Nursing No Action Required 03/29/22 21:25 03/29/22 22:44 Temperature Temperature Source Pulse Rate Pulse Rate [Finger ] 95 H 86 Respiratory Rate 18 17 Respiratory Effort / Characteristics Non-Labored Sponta neous Non-Labored Sponta neous Respiratory Depth Normal Normal Blood Pressure Blood Pressure [Le ft Arm] 139/87 144/94 H Blood Pressure Maria E n Blood Pressure Maria E n [Left Arm] 104 110 Blood Pressure Pos ition [Left Arm] Lying Lying Pulse Oximetry 98 97 Oxygen Delivery Me thod Room Air Room Air Sepsis Recent Feve r Within 48 Hours Sepsis New/Unexpla ined Change in Men rose mary Status Sepsis Action Take n by Nursing Physical Exam: Physical Exam GENERAL: She is oriented to person, place, and time. She appears well-developed and well-nourished. She does not appear distressed. HENT: Exam performed. -Head: Normocephalic and atraumatic. -Right Ear: External ear normal. No mastoid tenderness. -Left Ear: External ear normal. No mastoid tenderness. -Mouth/Throat: The oropharynx is clear and moist. No trismus in the jaw. No dental abscesses or uvula swelling. No oropharyngeal exudate or tonsillar abscesses. EYES: Conjunctivae and EOM are normal. Pupils are equal, round, and reactive to light. Right eye exhibits no discharge. Left eye exhibits no discharge. No scleral icterus. NECK: Normal range of motion. Neck supple. No JVD present. No spinous process tenderness present. No carotid bruit present. No rigidity. No tracheal deviation and normal range of motion present. No Brudzinski's sign and no Kernig's sign noted. CV: Normal rate, regular rhythm, normal heart sounds and intact distal pulses. There is no peripheral edema. Palpable radial pulses bue. PULM/CHEST: Effort normal and breath sounds normal. No respiratory distress. No stridor. She has no wheezes. She has no rales. -Chest Wall: She exhibits no tenderness. ABD: The abdomen is soft. Bowel sounds are normal. She has no distension. No mass is present. There is diffuse tenderness to palpation of the abdomen There is no rebound, no guarding, no Smith's sign and no tenderness at McBurney's point. Rovsig negative MUSC/SKEL: Normal range of motion. There is no peripheral edema, tenderness or deformity. LYMPH: No cervical adenopathy. NEURO: She is alert and oriented to person, place, and time. She has normal strength. No cranial nerve deficit or sensory deficit. Coordination and gait normal. GCS eye subscore is 4. GCS verbal subscore is 5. GCS motor subscore is 6. Cerebellar tests wnl. SKIN: Skin is warm and dry. She is not diaphoretic. PSYCH: She has a normal mood and affect. Behavior is normal. Judgment and thought content normal. Course Course 1919: The patient was evaluated in room B10. A complete history and physical exam was performed Cardiac monitoring: An order was placed for continuous cardiac monitoring. The monitor shows a rate of 80 with sinus rhythm 2200: Vital signs stable. Labs show leukocytosis of 15. Imaging shows possible cholecystitis. Discussed the case with general surgery Daniel Hong who states he will admit to Dr. Galvan service. Administered Medications Morphine Sulfate (Morphine Sulfate 4 Mg/Ml 1 Ml Carp\Vial) 3 mg IV Q3H PRN PRN Reason: Pain Stop: 04/12/22 21:55 Last Admin: 03/29/22 22:09 Dose: 3 mg Documented by: [id number] Discontinued Medications Sodium Chloride (Nss 1000ml) 1,000 mls @ 999 mls/hr IV .Q1H1M ONE Stop: 03/29/22 20:20 Last Infusion: 03/29/22 21:50 Dose: 0 mls/hr Documented by: [id number] Admin: 03/29/22 19:35 Dose: 999 mls/hr Documented by: [id number] Ceftriaxone Sodium (Rocephin) 2,000 mg in 70 mls @ 140 mls/hr IV NOW STA Stop: 03/29/22 21:43 Last Infusion: 03/29/22 21:50 Dose: 0 mls/hr Documented by: [id number] Admin: 03/29/22 21:23 Dose: 140 mls/hr Documented by: [id number] Metronidazole (Flagyl) 500 mg in 100 mls @ 100 mls/hr IV NOW STA Stop: 03/29/22 22:13 Last Admin: 03/29/22 21:50 Dose: 100 mls/hr Documented by: [id number] Ioversol (Optiray 320 100ml) 93 ml IV ONCE ONE Stop: 03/29/22 20:31 Last Admin: 03/29/22 20:31 Dose: 93 ml Documented by: [id number] Ketorolac Tromethamine (Ketorolac Tromethamine 15 Mg/Ml Vial) 15 mg IV NOW STA Stop: 03/29/22 19:21 Last Admin: 03/29/22 19:45 Dose: 15 mg Documented by: [id number] Ondansetron HCl (Ondansetron Inj 2 Mg/Ml 2 Ml Vial) 4 mg IV NOW STA Stop: 03/29/22 19:21 Last Admin: 03/29/22 19:45 Dose: 4 mg Documented by: [id number] Medical Decision Making Laboratory Data Result diagrams: 03/29/22 19:32 03/29/22 22:12 Lab Results 03/29/22 03/29/22 03/29/22 Range/Units 19:32 19:32 19:42 WBC 15.85 H (4.8-10.8) K/uL RBC 4.19 L (4.2-5.4) M/uL Hgb 13.4 (12.0-16.0) g/dL Hct 40.9 (37-47) % MCV 97.6 (80-100) fL MCH 32.0 (25-34) pg MCHC 32.8 (32-36) g/dL RDW Std Deviation 48.1 H (36.4-46.3) fL RDW Coeff of [place]ul[place] 13.5 (11.5-14.5) % Plt Count 387 (130-400) K/uL MPV 10.0 (7.4-10.4) fL Immature Gran % (Auto) 0.3 % Neut % (Auto) 75.6 % Lymph % (Auto) 15.5 % [place] % (Auto) 6.8 % Eos % (Auto) 1.6 % Baso % (Auto) 0.2 % Neut # (Auto) 11.98 H (1.4-6.5) K/uL Lymph # (Auto) 2.46 (1.2-3.4) K/uL [place] # (Auto) 1.08 H (0.11-0.59) K/uL Eos # (Auto) 0.25 (0-0.5) K/uL Baso # (Auto) 0.03 (0-0.2) K/uL Immature Gran # (Auto) 0.05 H (0.00-0.02) K/uL Sodium 134 L (136-145) mmol/L Potassium 3.6 (3.5-5.1) mmol/L Chloride 102 (98-107) mmol/L Carbon Dioxide 25 (21-32) mmol/L Anion Gap 7 (3-11) BUN 13 (6-23) mg/dl Creatinine 1.01 (0.6-1.2) mg/dl Est Cr Clr Drug Dosing 88.9 ml/min Est GFR ( Amer) 74.1 ml/min Est GFR (Non-Af Amer) 64.0 ml/min BUN/Creatinine Ratio 12.9 (10-20) Glucose 116 H (70-99(Fasting)) mg/dl Calcium 9.1 (8.5-10.1) mg/dl Total Bilirubin 0.6 (0.2-1.0) mg/dl Direct Bilirubin 0.1 (0-0.2) mg/dl AST 11 L (13-39) U/L ALT 11 (7-52) U/L Alkaline Phosphatase 64 (34-104) U/L Total Protein 6.9 (6.0-8.3) gm/dl Albumin 4.0 (3.4-5.0) gm/dl Globulin (2.5-4.0) gm/dl Albumin/Globulin Ratio (0.9-2) Lipase 26 (11-82) U/L Urine Color Yellow Urine Appearance Cloudy A (Clear) Urine pH 6.5 (4.5-7.5) Ur Specific [place] 1.017 (1.000-1.030) Urine Protein Negative (Negative) Urine Glucose (UA) Negative (Negative) Urine Ketones Negative (Negative) Urine Blood Negative (Negative) Urine Nitrite Negative (Negative) Urine Bilirubin Negative (Negative) Urine Urobilinogen Negative (Negative) Ur Leukocyte Esterase 1+ H (Negative) Urine WBC (Auto) 10-30 H (0-5) /hpf Urine RBC (Auto) 0-4 (0-4) /hpf U Hyaline Cast (Auto) 1-5 (0-5) /lpf U Epithel Cells (Auto) >30 H (0-5) /lpf Urine Bacteria (Auto) 1+ H (Negative) POC Ur Test (NEG) SARS-CoV-2, RNA, NAAT (NEGATIVE) 03/29/22 03/29/22 03/29/22 Range/Units 19:42 22:12 22:21 WBC (4.8-10.8) K/uL RBC (4.2-5.4) M/uL Hgb (12.0-16.0) g/dL Hct (37-47) % MCV (80-100) fL MCH (25-34) pg MCHC (32-36) g/dL RDW Std Deviation (36.4-46.3) fL RDW Coeff of [place]uliet (11.5-14.5) % Plt Count (130-400) K/uL MPV (7.4-10.4) fL Immature Gran % (Auto) % Neut % (Auto) % Lymph % (Auto) % [place] % (Auto) % Eos % (Auto) % Baso % (Auto) % Neut # (Auto) (1.4-6.5) K/uL Lymph # (Auto) (1.2-3.4) K/uL [place] # (Auto) (0.11-0.59) K/uL Eos # (Auto) (0-0.5) K/uL Baso # (Auto) (0-0.2) K/uL Immature Gran # (Auto) (0.00-0.02) K/uL Sodium 134 L (136-145) mmol/L Potassium 3.7 (3.5-5.1) mmol/L Chloride 103 (98-107) mmol/L Carbon Dioxide 24 (21-32) mmol/L Anion Gap 7 (3-11) BUN 12 (6-23) mg/dl Creatinine 1.04 (0.6-1.2) mg/dl Est Cr Clr Drug Dosing 86.3 ml/min Est GFR ( Amer) 71.5 ml/min Est GFR (Non-Af Amer) 61.7 ml/min BUN/Creatinine Ratio 11.5 (10-20) Glucose 117 H (70-99(Fasting)) mg/dl Calcium 8.5 (8.5-10.1) mg/dl Total Bilirubin 0.5 (0.2-1.0) mg/dl Direct Bilirubin (0-0.2) mg/dl AST 11 L (13-39) U/L ALT 11 (7-52) U/L Alkaline Phosphatase 64 (34-104) U/L Total Protein 6.7 (6.0-8.3) gm/dl Albumin 3.8 (3.4-5.0) gm/dl Globulin 2.9 (2.5-4.0) gm/dl Albumin/Globulin Ratio 1.3 (0.9-2) Lipase (11-82) U/L Urine Color Urine Appearance (Clear) Urine pH (4.5-7.5) Ur Specific [place] (1.000-1.030) Urine Protein (Negative) Urine Glucose (UA) (Negative) Urine Ketones (Negative) Urine Blood (Negative) Urine Nitrite (Negative) Urine Bilirubin (Negative) Urine Urobilinogen (Negative) Ur Leukocyte Esterase (Negative) Urine WBC (Auto) (0-5) /hpf Urine RBC (Auto) (0-4) /hpf U Hyaline Cast (Auto) (0-5) /lpf U Epithel Cells (Auto) (0-5) /lpf Urine Bacteria (Auto) (Negative) POC Ur Test NEG (NEG) SARS-CoV-2, RNA, NAAT NEGATIVE (NEGATIVE) Imaging Data Radiologist's Impression: Abdomen/Pelvis CT 03/29/22 19:[address] WITH IV CONTRAST CT DOSE: 1474.02 mGy.cm HISTORY: Acute generalized abdominal pain abd pain feels like diverticulitis TECHNIQUE: Multiaxial CT images of the abdomen and pelvis were performed following the IV administration of 93 cc of Optiray, A dose lowering technique was utilized adhering to the principles of ALARA. COMPARISON STUDY: CT abdomen and pelvis 07/22/2017 FINDINGS: There is mild subsegmental bibasilar atelectasis. Right hemid iaphragmatic elevation. No pneumatosis or pneumoperitoneum. Unremarkable spleen, pancreas and adrenal glands. There is circumferential wall thickening of the gallbladder with pericholecystic inflammation and trace free fluid. Mildly enlarged periportal and precaval lymph nodes measure up to 11 mm. Unremarkable liver. There is patency of the hepatic and portal veins. Unremarkable kidneys and urinary bladder. IUD appears to be in satisfactory positioning. Cystic foci of the left ovary measure up to 1.4 cm. The aorta and IVC appear unremarkable. Tiny hiatal hernia. Mild wall thickening of the d uodenum. Trace free pelvic fluid. Normal appendix. Unremarkable soft tissues. No acute fracture. IMPRESSION: 1. Findings compatible with acute cholecystitis. Surgical consultation recommended. 2. No biliary ductal dilation. 3. Mild periportal and precaval adenopathy with mild duodenal wall thickening is likely reactive. 4. No bowel obstruction. Normal appendix. ACT 112: Negative or not required by law. The above report was generated using voice recognition software. It may contain grammatical, syntax or spelling errors. Electronically signed by: Leonel Martino M.D. 03/29/2022 9:00 PM MDM Narrative Vital signs stable. Labs show leukocytosis of 15. Imaging shows possible cholecystitis. Discussed the case with general surgery Daniel Hong who states he will admit to Dr. Galvan service. Impression & Plan Acute cholecystitis Discharge Plan Visit Data Chief Complaint: Abdominal Pain Stated Complaint: SEVERE STOMACH PAIN (DIVERTICLITIS) Discharge Problem: Acute cholecystitis Patient Disposition: Admitted As Inpatient Forms Stand Alone Forms: [facility] Prescriptions Prescriptions: No Action lisinopril 20 mg tablet 20 mg PO QAM Qty: 90 RF: 1 hydrochlorothiazide 12.5 mg capsule 12.5 mg PO QAM Qty: 90 RF: 1 aspirin 81 mg tablet,delayed release (DR/EC) 81 mg PO QAM Qty: 90 RF: 1 venlafaxine 100 mg tablet 100 mg PO DAILY Qty: 30 RF: 5 cholecalciferol (vitamin D3) 50 mcg (2,000 unit) capsule 50 mcg PO DAILY Qty: 90 RF: 1 ferrous sulfate 325 mg (65 mg iron) tablet 325 mg PO DAILY RF: 0 fluticasone propionate [Flonase Allergy Relief] 50 mcg/actuation [place],Suspension 2 spray INTRANASAL DAILY PRN (Reason: Congestion) RF: 0 pantoprazole 40 mg tablet,delayed release (DR/EC) 40 mg PO DAILYBB RF: 0 Referrals Referrals: Scarlett Sloan MD [Primary Care Provider] -
[2022-03-30] MEDS ORDERED: FLUTICASONE PROPIONATE NA SPR 16 GM BTL PRN (00:01)
[2022-03-30] MEDS: LACTATED RINGER'S 1,000 ML IV SCH ×3 (00:24→15:24)
[2022-03-30] MEDS: MoRPHine SULFATE 4 MG/ML 1 ML CARP\\VIAL IV PRN (02:19)
[2022-03-30] MEDS: metroNIDAZOLE 500 MG/100 ML BAG IV SCH ×3 (05:27→21:35)
[2022-03-30] MEDS: PANTOprazole 40 MG TAB PO SCH (05:27)
[2022-03-30 05:53] LABS: Basophils # (auto) 0.04 K/uL (0-0.2); Basophils % (auto) 0.3 %; Eosinophils # (auto) 0.41 K/uL (0-0.5); Eosinophils % (auto) 3.3 %; Hematocrit (blood only) 37.5 % (37-47); Hemoglobin 12.2 g/dL (12.0-16.0); Immature Granulocytes # (auto) 0.03 K/uL (0.00-0.02); Immature Granulocytes % (auto) 0.2 %; Lymphocytes # (auto) 2.48 K/uL (1.2-3.4); Lymphocytes % (auto) 20.2 %; Mean Corpuscular Hemoglobin 32.4 pg (25-34); Mean Corpuscular Volume 99.5 fL (80-100); Mean Platelet Volume 9.7 fL (7.4-10.4); Monocytes # (auto) 0.91 K/uL (0.11-0.59); Monocytes % (auto) 7.4 %; Neutrophils # (auto) 8.39 K/uL (1.4-6.5); Neutrophils % (auto) 68.6 %; Platelet Count 303 K/uL (130-400); RDW Coefficient of Variation 13.8 % (11.5-14.5); RDW Standard Deviation 49.6 fL (36.4-46.3); Red Blood Count 3.77 M/uL (4.2-5.4); White Blood Count 12.26 K/uL (4.8-10.8)
[2022-03-30 05:56] LABS: Mean Corpuscular Hgb Conc 32.5 g/dL (32-36)
[2022-03-30 06:21] LABS: Albumin Globulin Ratio 1.4 (0.9-2); Albumin Level 3.6 gm/dl (3.4-5.0); BUN Creatinine Ratio 9.3 (10-20); Bilirubin,Total 0.7 mg/dl (0.2-1.0); Calcium 8.4 mg/dl (8.5-10.1); Creatinine Clr Calc Pharmacy 78.5 ml/min; Est GFR (African American) 69.1 ml/min; Est GFR (Non-African American) 59.6 ml/min; Globulin 2.6 gm/dl (2.5-4.0); Potassium 3.6 mmol/L (3.5-5.1); Total Protein 6.2 gm/dl (6.0-8.3)
--- NOTE | 2022-03-30 07:07 | Ultrasound Report ---
ULTRASOUND RIGHT UPPER QUADRANT ABDOMEN CLINICAL HISTORY: Right upper quadrant abdominal pain. COMPARISON STUDY: Abdominal CT dated 03/29/2022. TECHNIQUE: Real-time, grayscale, and color flow sonography of the right upper quadrant of the abdomen was performed. Images are reviewed in the transverse and longitudinal planes. FINDINGS: Liver: The liver is normal in size and demonstrates heterogeneous increased echotexture indicating st eatosis. There is no intrahepatic biliary ductal dilatation. The main portal vein is patent. Gallbladder: There are numerous calcified shadowing gallstone. The gallbladder is distended, and the wall is thickened and edematous measuring up to 4 mm. There is no pericholecystic fluid. A sonographi c Smith's sign is reportedly present. The common bile duct measures up to 0.5 cm in diameter. Pancreas: Visualized portions of the pancreatic head and body are normal in appearance. Right kidney: Survey images of the right kidney demonstrate normal size and echotexture. There is no hydronephrosis. Ascites: None. IMPRESSION: 1. Cholelithiasis with evidence of acute cholecystitis. Surgical consultation is advised. 2. There is no intra or extrahepatic biliary ductal dilatation. 3. Hepatic steatosis. ACT 112: Negative or not required by law. Electronically signed by: Cam Christensen M.D. 03/30/2022 7:05 AM
[2022-03-30] MEDS ORDERED: fentaNYL citrate 100 MCG/2 ML VIAL ONE ×2 (07:31→12:37)
[2022-03-30] MEDS ORDERED: MIDAZOLAM HCL 1 MG/ML 2ML VIAL ONE (07:31)
[2022-03-30] MEDS ORDERED: NEOSTIGMINE METHYLSULFATE 1 MG/ML 10ML VIAL ONE (07:51)
[2022-03-30] MEDS ORDERED: ONDANSETRON INJ 2 MG/ML 2 ML VIAL ONE ×2 (07:51→11:55)
[2022-03-30] MEDS ORDERED: LARYING-O-JET KIT (LTA) ONE (07:51)
[2022-03-30] MEDS ORDERED: DEXAMETHASONE SOD INJ 4 MG/ML VIAL ONE ×2 (07:51→11:55)
[2022-03-30] MEDS ORDERED: GLYCOPYRROLATE 0.2 MG/ML VIAL ONE (07:51)
[2022-03-30] MEDS ORDERED: PROPOFOL IV EMULSION 10 MG/ML 20 ML VIAL IV ONE (07:51)
[2022-03-30] MEDS ORDERED: ROCURONIUM BROMIDE 10 MG/ML 5 ML VIAL IV ONE ×3 (07:51→13:17)
[2022-03-30] MEDS ORDERED: LIDOCAINE 2% 2 ML VIAL/AMP(20MG/ML) INFIL ONE (07:51)
--- NOTE | 2022-03-30 07:56 | XRay Report ---
XR chest 1V portable CLINICAL HISTORY: Preoperative evaluation. COMPARISON STUDY: Chest radiograph July 21, 2017. FINDINGS: There is mild elevation of the right hemidiaphragm. No pneumothorax or pleural effusion is noted. Linear right basilar opacity reflects atelectasis. No evidence for pulmonary edema or pneumoni a. Cardiac size is normal. IMPRESSION: No acute cardiopulmonary findings. ACT 112: Negative or not required by law. Electronically signed by: Sukhdeep Valencia M.D. 03/30/2022 7:54 AM
--- NOTE | 2022-03-30 08:20 | Anesthesiology Consultation ---
Date of Service March 30, 2022 Assessment & Plan (1) Encounter for pre-operative examination: Chart Review Chart Review: Acceptable Risk for Surgery and Patient NOT seen in Pre Admission Testing History Surgery Operation Date: 03/30/22 08:00 Proposed Procedures p Robotic Laparoscopic Cholecystectomy Possible Open - Dion Galvan DO, FACS Height/Weight Height: 5 ft 9 in Weight: 102.9 kg Allergies Allergy/AdvReac Type Severity Reaction Status Date / Time No Known Allergies Allergy Verified 03/29/22 20:15 Medications Home Medications Medication Instructions Recorded Confirmed Last Taken fluticasone propionate 50 2 spray INTRANASAL DAILY PRN 11/25/18 03/29/22 Unknown mcg/actuation nasal spray,suspension (Flonase Allergy Relief) ferrous sulfate 325 mg (65 mg 325 mg PO DAILY 06/16/20 03/29/22 03/29/22 iron) tablet lisinopril 20 mg tablet 20 mg PO QAM #90 tab 11/10/21 03/29/22 03/29/22 hydrochlorothiazide 12.5 mg capsule 12.5 mg PO QAM #90 cap 11/18/21 03/29/22 03/29/22 aspirin 81 mg tablet,delayed 81 mg PO QAM #90 tab 12/26/21 03/29/22 03/29/22 release venlafaxine 100 mg tablet 100 mg PO DAILY #30 tab 12/26/21 03/29/22 03/29/22 cholecalciferol (vitamin D3) 50 50 mcg PO DAILY #90 cap 01/02/22 03/29/22 03/29/22 mcg (2,000 unit) capsule pantoprazole 40 mg tablet,delayed 40 mg PO DAILYBB 03/29/22 03/29/22 03/29/22 release Active Medications Generic Name Dose Route Start Last Admin Trade Name Freq PRN Reason Stop Dose Admin Lactated Ringer's 1,000 mls @ 100 mls/hr 03/29/22 22:00 03/30/22 00:24 Lr IV 04/28/22 21:59 100 mls/hr .Q10H ADRIAN Administration Metronidazole 500 mg in 100 mls @ 100 mls/hr 03/30/22 06:00 03/30/22 06:49 Flagyl IV 04/09/22 05:59 Infused Q8H ADRIAN Infusion Morphine Sulfate 3 mg 03/29/22 21:56 03/30/22 02:19 Morphine Sulfate 4 Mg/Ml 1 Ml Carp\Vial IV 04/12/22 21:55 3 mg Q3H PRN Administration Pain Pantoprazole Sodium 40 mg 03/30/22 06:30 03/30/22 05:27 Pantoprazole 40 Mg Tab PO 04/29/22 06:29 40 mg DAILYBB ADRIAN Administration Past Medical History Medical History Chondromalacia, patella Colon polyps TVA 2011 CVA (cerebral vascular accident) Diverticulitis Dysphagia Iliotibial band syndrome Menorrhagia Stroke 11/28/2018 MINI STROKE -- NO RESIDUAL EFFECTS Past Family History Family History Uncle Colorectal cancer Aunt Colorectal cancer Mother Breast cancer Other Cancer Heart disease Hypertension Denies family history of Ovarian cancer Prostate cancer Crohn's disease Myocardial infarction Ulcerative colitis Past Surgical History Surgical History H/O section X 2 H/O colonoscopy (11/2019) History of esophagogastroduodenoscopy (EGD) (11/2019) Social History Smoking Status: Never smoker Do You Dip or Chew Tobacco: No Hx Alcohol Use: Yes Alcohol type: hard liquor alcohol intake frequency: a few times a month Hx Substance Use: No substance use type: does not use Physical Exam Vital Signs Last Vital Signs Temp 36.6 C 03/30/22 08:13 Pulse 91 H 03/30/22 08:13 Resp 17 03/30/22 08:13 BP 133/79 03/30/22 08:13 Pulse Ox 94 03/30/22 08:13 Testing Laboratory Results 03/30/22 05:38 03/30/22 05:38 Urine Color Yellow 03/29/22 19:42 Urine Appearance Cloudy (Clear) A 03/29/22 19:42 Urine pH 6.5 (4.5-7.5) 03/29/22 19:42 Ur Specific [place] 1.017 (1.000-1.030) 03/29/22 19:42 Urine Protein Negative (Negative) 03/29/22 19:42 Urine Glucose (UA) Negative (Negative) 03/29/22 19:42 Urine Ketones Negative (Negative) 03/29/22 19:42 Urine Nitrite Negative (Negative) 03/29/22 19:42 Ur Leukocyte Esterase 1+ (Negative) H 03/29/22 19:42 Urine WBC (Auto) 10-30 /hpf (0-5) H 03/29/22 19:42 Urine RBC (Auto) 0-4 /hpf (0-4) 03/29/22 19:42 U Hyaline Cast (Auto) 1-5 /lpf (0-5) 03/29/22 19:42 U Epithel Cells (Auto) >30 /lpf (0-5) H 03/29/22 19:42 Urine Bacteria (Auto) 1+ (Negative) H 03/29/22 19:42 03/29/22 19:42 POC Ur Test NEG Electrocardiogram Date: 03/29/22 Findings: + NSR @
[2022-03-30] MEDS ORDERED: INDOCYANINE GREEN 25 MG VIAL INJ ONE (08:24)
[2022-03-30] MEDS: ACETAMINOPHEN 1,000 MG/100 ML VIAL IV PRN (08:38)
[2022-03-30] MEDS: VENLAFAXINE HCL 50 MG TAB PO SCH (08:42)
--- NOTE | 2022-03-30 09:25 | Electrocardiogram Report ---
Test Reason : Blood Pressure : / mmHG Vent. Rate : 095 BPM Atrial Rate : 095 BPM P-R Int : 144 ms QRS Dur : 086 ms QT Int : 364 ms P-R-T Axes : 019 -05 007 degrees QTc Int : 457 ms Normal sinus rhythm Normal ECG When compared with ECG of 28-NOV-2018 15:27, No significant change was found Confirmed by Jignesh Ray ([id number]) on 03/30/2022 9:25:21 AM Referred By: REFERRED SELF Confirmed By:Jignesh Ray
[2022-03-30] MEDS ORDERED: ePHEDrine sulfate 50 MG/ML AMP IV PRN (10:28)
[2022-03-30] MEDS ORDERED: fentaNYL citrate 100 MCG/2 ML VIAL IV PRN (10:28)
[2022-03-30] MEDS ORDERED: ONDANSETRON INJ 2 MG/ML 2 ML VIAL IV PRN (10:28)
[2022-03-30] MEDS ORDERED: ATROPINE SULFATE 0.1 MG/ML 10ML SYR IV PRN (10:28)
[2022-03-30] MEDS ORDERED: HYDROmorphone INJ 1 MG/ML SYRINGE IV PRN (10:28)
[2022-03-30] MEDS ORDERED: cefOXitin 2,000 MG in DEXTROSE 5% 50 ML IV STA (11:10)
--- NOTE | 2022-03-30 11:15 | Surgery Progress Note ---
Date of Service March 30, 2022 Assessment & Plan (1) Acute cholecystitis: Plan: 51 year old female with cholelithiasis and acute cholecystitis. plan for laparoscopic/robotic cholecystectomy with possible cholangiogram risks discussed to include but not limited to bleeding, infection, retained stone, bile leak, open surgery, damage to surrounding structures including bile duct, need for future or more extensive surgery, failure to treat symptoms, and risks of anesthesia. potential discharge this afternoon or tomorrow wound care instructions, activity restrictions, and return precautions given Admission and Anticipated Discharge Date Admission Date: March 29, 2022 Subjective 51 y/o female admitted with cholecystitis. Pain somewhat improved, but still present. No changes overnight. Physical Exam Constitutional: WD/WN, vitals as above Gastrointestinal (Abdomen): Percussion/Palpation: + abdomen tender (ttp in RUQ) and abdomen soft; no guarding, abdomen not rigid, no hepatosplenomegaly and no hernia Results & Data ([facility]) Vital Signs (Past 12 Hours) Vital Signs Temp Pulse Pulse Resp BP BP BP 03/30/22 10:01 37 C 91 H 18 118/78 03/30/22 08:13 36.6 C 91 H 17 133/79 03/30/22 00:04 36.8 C 92 H 18 124/84 03/29/22 23:42 86 18 144/94 H Pulse Ox 03/30/22 10:01 96 03/30/22 08:13 94 03/30/22 00:04 96 03/29/22 23:42 98 Laboratory Results Laboratory Results - last 24 hr 03/29/22 03/29/22 03/29/22 19:32 19:32 19:42 WBC 15.85 H RBC 4.19 L Hgb 13.4 Hct 40.9 MCV 97.6 MCH 32.0 MCHC 32.8 RDW Std Deviation 48.1 H RDW Coeff of [place] 13.5 Plt Count 387 MPV 10.0 Immature Gran % (Auto) 0.3 Neut % (Auto) 75.6 Lymph % (Auto) 15.5 [place] % (Auto) 6.8 Eos % (Auto) 1.6 Baso % (Auto) 0.2 Neut # (Auto) 11.98 H Lymph # (Auto) 2.46 [place] # (Auto) 1.08 H Eos # (Auto) 0.25 Baso # (Auto) 0.03 Immature Gran # (Auto) 0.05 H Sodium 134 L Potassium 3.6 Chloride 102 Carbon Dioxide 25 Anion Gap 7 BUN 13 Creatinine 1.01 Est Cr Clr Drug Dosing 88.9 Est GFR ( Amer) 74.1 Est GFR (Non-Af Amer) 64.0 BUN/Creatinine Ratio 12.9 Glucose 116 H Calcium 9.1 Total Bilirubin 0.6 Direct Bilirubin 0.1 AST 11 L ALT 11 Alkaline Phosphatase 64 Total Protein 6.9 Albumin 4.0 Globulin Albumin/Globulin Ratio Lipase 26 Urine Color Yellow Urine Appearance Cloudy A Urine pH 6.5 Ur Specific [place] 1.017 Urine Protein Negative Urine Glucose (UA) Negative Urine Ketones Negative Urine Blood Negative Urine Nitrite Negative Urine Bilirubin Negative Urine Urobilinogen Negative Ur Leukocyte Esterase 1+ H Urine WBC (Auto) 10-30 H Urine RBC (Auto) 0-4 U Hyaline Cast (Auto) 1-5 U Epithel Cells (Auto) >30 H Urine Bacteria (Auto) 1+ H POC Ur Test SARS-CoV-2, RNA, NAAT 03/29/22 03/29/22 03/29/22 19:42 22:12 22:21 WBC RBC Hgb Hct MCV MCH MCHC RDW Std Deviation RDW Coeff of [place] Plt Count MPV Immature Gran % (Auto) Neut % (Auto) Lymph % (Auto) [place] % (Auto) Eos % (Auto) Baso % (Auto) Neut # (Auto) Lymph # (Auto) [place] # (Auto) Eos # (Auto) Baso # (Auto) Immature Gran # (Auto) Sodium 134 L Potassium 3.7 Chloride 103 Carbon Dioxide 24 Anion Gap 7 BUN 12 Creatinine 1.04 Est Cr Clr Drug Dosing 86.3 Est GFR ( Amer) 71.5 Est GFR (Non-Af Amer) 61.7 BUN/Creatinine Ratio 11.5 Glucose 117 H Calcium 8.5 Total Bilirubin 0.5 Direct Bilirubin AST 11 L ALT 11 Alkaline Phosphatase 64 Total Protein 6.7 Albumin 3.8 Globulin 2.9 Albumin/Globulin Ratio 1.3 Lipase Urine Color Urine Appearance Urine pH Ur Specific [place] Urine Protein Urine Glucose (UA) Urine Ketones Urine Blood Urine Nitrite Urine Bilirubin Urine Urobilinogen Ur Leukocyte Esterase Urine WBC (Auto) Urine RBC (Auto) U Hyaline Cast (Auto) U Epithel Cells (Auto) Urine Bacteria (Auto) POC Ur Test NEG SARS-CoV-2, RNA, NAAT NEGATIVE 03/30/22 03/30/22 05:38 05:38 WBC 12.26 H RBC 3.77 L Hgb 12.2 Hct 37.5 MCV 99.5 MCH 32.4 MCHC 32.5 RDW Std Deviation 49.6 H RDW Coeff of [place] 13.8 Plt Count 303 MPV 9.7 Immature Gran % (Auto) 0.2 Neut % (Auto) 68.6 Lymph % (Auto) 20.2 [place] % (Auto) 7.4 Eos % (Auto) 3.3 Baso % (Auto) 0.3 Neut # (Auto) 8.39 H Lymph # (Auto) 2.48 [place] # (Auto) 0.91 H Eos # (Auto) 0.41 Baso # (Auto) 0.04 Immature Gran # (Auto) 0.03 H Sodium 136 Potassium 3.6 Chloride 104 Carbon Dioxide 28 Anion Gap 4 BUN 10 Creatinine 1.07 Est Cr Clr Drug Dosing 78.5 Est GFR ( Amer) 69.1 Est GFR (Non-Af Amer) 59.6 BUN/Creatinine Ratio 9.3 L Glucose 100 H Calcium 8.4 L Total Bilirubin 0.7 Direct Bilirubin AST 13 ALT 13 Alkaline Phosphatase 59 Total Protein 6.2 Albumin 3.6 Globulin 2.6 Albumin/Globulin Ratio 1.4 Lipase Urine Color Urine Appearance Urine pH Ur Specific [place] Urine Protein Urine Glucose (UA) Urine Ketones Urine Blood Urine Nitrite Urine Bilirubin Urine Urobilinogen Ur Leukocyte Esterase Urine WBC (Auto) Urine RBC (Auto) U Hyaline Cast (Auto) U Epithel Cells (Auto) Urine Bacteria (Auto) POC Ur Test SARS-CoV-2, RNA, NAAT Diagnostic Findings ULTRASOUND RIGHT UPPER QUADRANT ABDOMEN CLINICAL HISTORY: Right upper quadrant abdominal pain. COMPARISON STUDY: Abdominal CT dated 03/29/2022. TECHNIQUE: Real-time, grayscale, and color flow sonography of the right upper quadrant of the abdomen was performed. Images are reviewed in the transverse and longitudinal planes. FINDINGS: Liver: The liver is normal in size and demonstrates heterogeneous increased echotexture indicating steatosis. There is no intrahepatic biliary ductal dilatation. The main portal vein is patent. Gallbladder: There are numerous calcified shadowing gallstone. The gallbladder is distended, and the wall is thickened and edematous measuring up to 4 mm. There is no pericholecystic fluid. A sonographic Smith's sign is reportedly present. The common bile duct measures up to 0.5 cm in diameter. Pancreas: Visualized portions of the pancreatic head and body are normal in appearance. Right kidney: Survey images of the right kidney demonstrate normal size and echotexture. There is no hydronephrosis. Ascites: None. IMPRESSION: 1. Cholelithiasis with evidence of acute cholecystitis. Surgical consultation is advised. 2. There is no intra or extrahepatic biliary ductal dilatation. 3. Hepatic steatosis. PG Care Time/CCT Total # of Minutes Spent Total Time Spent with Patient: Total time spent is greater than 50% in coordination of care (as documented) at patient's floor/unit and/or counseling patient: Coding Level of Care Code 35409 Subseq Obs Care Lvl 2 Diagnoses Acute cholecystitis K81.0
[2022-03-30] MEDS ORDERED: BUPIVACAINE 0.5 % 5 MG/1 ML MPF 30ML VIAL ONE (11:18)
[2022-03-30] MEDS ORDERED: KETOROLAC 30 MG/ML VIAL ONE (11:55)
[2022-03-30] MEDS ORDERED: PHENYLEPHRINE 100MCG/ML 5ML SYR ONE (12:01)
--- NOTE | 2022-03-30 13:43 | Operative Report ---
PG Post Operative Report Pre & Post Diagnosis Operation Date: 03/30/22 08:00 Pre-Op Diagnosis: Cholelithiasis, acute cholecystitis Post-Op Diagnosis: Cholelithiasis and acute cholecystitis I identified the patient and participated in the time-out.: Yes Procedure Operation Date: 03/30/22 08:00 Actual Procedures p Robotic Laparoscopic Cholecystectomy - Dion Galvan DO, PATRICIA Surgeon Dion Galvan DO, PATRICIA Asphalt Dauber Lucio Gómez Estimated Blood Loss 10 Findings Consistent with Post-Op Diagnosis Moderate to severe acute on chronic cholecystitis. Stone impacted in cystic duct. Critical view of safety obtained, cystic duct and artery doubly clipped and divided. Spilled stones were retrieved. Specimens Gallbladder Anesthesia Type General Complications none Disposition Accompanied Patient To Recovery: No Disposition: Recovery Room Indications 51-year-old female presented to the emergency department overnight with right upper quadrant pain starting Sunday. CT and ultrasound suggested acute cholecystitis with cholelithiasis. Plan for robotic assisted laparoscopic cholecystectomy with possible cholangiogram. The risks of the procedure were discussed, all questions were answered, and the patient agreed to proceed with surgery as planned. Description of Procedure The patient was properly identified, consented, and taken to the operating room where she was placed in the supine position. 2.5 mg of indocyanine green were administered IV approximately 45 min prior to the surgery. General endotracheal anesthesia was induced. SCDs and a safety belt were placed. Preoperative antibiotics were administered. The patient's abdomen was prepped and draped in the standard sterile fashion. A surgical timeout was performed and all parties were in agreement that this was the correct patient and procedure to be performed and we continued as planned. An incision was made just above the umbilicus just off of the midline. Veress needle was inserted and saline drop test confirmed entry to the abdomen. The abdomen was insufflated with carbon dioxide which the patient tolerated incident. Veress needle was removed and the abdomen is entered using the Optiview technique and a 5 mm camera. The introducer was removed and the abdomen inspected. No damage from initial trocar placement or Veress needle lorraine cement was identified. There were no significant abnormalities to the 4 quadrants of the abdomen. 8 mm robotic ports were then placed on the left and right. An additional 5 mm optometrist assistant port was placed in the lateral right subcostal position. The patient was placed in reverse Trendelenburg position and rotated towards the left. The robot was then docked and the camera and robotic instruments were inserted. The gallbladder was significantly inflamed and showed acute on chronic cholecystitis. Omental adhesions were taken down with cautery and blunt dissection to allow for visualization of the dome of the gallbladder. A large aspiration needle was placed into the dome of the gallbladder to decompress the gallbladder and allow for retraction. The dome of the gallbladder was grasped by the optometrist assistant and retracted towards the left upper quadrant and the infundibulum was retracted toward the right lower quadrant revealing Calot's triangle. Peritoneal attachments were taken down with electrocautery and blunt dissection. There was significant inflammation down near the infundibulum. Initially the gallbladder and cystic duct did not fill due to an impacted stone at the neck of the gallbladder. This was milked back into the gallbladder and eventually the gallbladder and cystic duct filled and were identifiable using firefly. The cystic duct and artery were circumferentially dissected. A window of safety was obtained showing the cystic duct entering the gallbladder with no aberrant structures noted. The cystic duct and artery were doubly clipped and divided. The gallbladder was then lifted off the gallbladder fossa with electrocautery. The inflammation was significant and the anterior to the wall of the gallbladder on several occasions. There were several small stones which were retrieved and placed in the Endo Catch bag at the conclusion of the case. The right upper quadrant was irrigated and hemostasis was found to be good. The gallbladder and spilled stones were placed in an Endo Catch bag and removed through the one of the port sites. The incision had to be extended to accommodate the gallbladder. This port site fascia was then closed with 0 Vicry l suture using the Chaz-Tony device. The instruments were removed and the robot was undocked. The trochars were removed and the abdomen was allowed to collapse. The skin of all ports was closed with 4-0 Monocryl subcuticular sutures. Dermabond was placed over the wounds. The patient was extubated in the operating room and taken to the PACU where she recovered without apparent incident. All sponge, instrument and needle counts were correct at the conclusion of the procedure. The patient tolerated the procedure well. The physician's optometrist assistant was present and scrubbed for the entirety of the case and was essential in positioning the patient, prepping and draping, retraction and exposure, driving the laparoscope, exchange of the robotic instruments removal of the gallbladder, closure of the incisions, and placement of the dressings. I attest to the content of the Intraoperative Record and any orders documented therein. Any exceptions are noted below.
--- NOTE | 2022-03-30 15:04 | Anesthesiology Progress Note ---
Date of Service March 30, 2022 Anesthesia Post Procedure Vital Signs Vital Signs: Temp Pulse Pulse Pulse Resp BP BP 03/30/22 14:45 36.4 C L 69 14 03/30/22 14:35 81 14 03/30/22 14:25 87 14 03/30/22 14:15 88 14 03/30/22 14:05 93 H 14 03/30/22 13:55 36.0 C L 93 H 14 03/30/22 10:01 37 C 91 H 18 03/30/22 08:13 36.6 C 91 H 17 133/79 03/30/22 00:04 36.8 C 92 H 18 124/84 03/29/22 23:42 86 18 144/94 H 03/29/22 22:44 86 17 144/94 H 03/29/22 21:25 95 H 18 139/87 03/29/22 20:18 100 H 17 147/94 H 03/29/22 19:43 91 H 18 03/29/22 19:15 36.7 C 98 H 20 172/105 H BP Pulse Ox 03/30/22 14:45 119/82 96 03/30/22 14:35 122/87 93 03/30/22 14:25 112/88 92 03/30/22 14:15 112/87 92 03/30/22 14:05 144/90 H 95 03/30/22 13:55 95/52 L 95 03/30/22 10:01 118/78 96 03/30/22 08:13 94 03/30/22 00:04 96 03/29/22 23:42 98 03/29/22 22:44 97 03/29/22 21:25 98 03/29/22 20:18 95 03/29/22 19:43 96 03/29/22 19:15 98 Pain Intensity Medial Abdomen: Pain Intensity: 0 Transfer of Care Handoff Completed per policy Notes Mental Status: alert / awake / arousable and participated in evaluation Patient Amnestic to Procedure: Yes Nausea / Vomiting: adequately controlled Pain: adequately controlled Airway Patency, RR, SpO2: stable & adequate BP & HR: stable & adequate Hydration State: stable & adequate Anesthetic Complications: no major complications apparent and Pt Satisfied with anesthetic care Notes: The patient is s/p robotic cholecystectomy. On emergency from anesthesia, the patient was noted to have a significant amount of yellow secretions. She was initially requiring 10L face mask to maintain her oxygen saturations greater than 95%. The patient is more awake now and is doing better. Her oxygen saturation is 98% while awake on 5L face mask. She drops to the low 90s when sleeping. Her lungs are slightly course but no wheezing. The patient is resting comfortably with no complaints. I spoke to Dr. Galvan and updated him on the patient. She will be transferred back to the floor for close monitoring on continuous pulse oximetry.
[2022-03-30] MEDS ORDERED: MoRPHine SULFATE 4 MG/ML 1 ML CARP\\VIAL IV PRN (15:14)
[2022-03-30] MEDS ORDERED: oxyCODONE HCL IR 5 MG TAB (IMMEDIATE RELEASE) PO PRN (15:14)
[2022-03-30] MEDS ORDERED: MoRPHine SULFATE 2 MG/ML CARP IV PRN (15:14)
[2022-03-30] MEDS ORDERED: cefTRIAXone SODIUM 2,000 MG in DEXTROSE 5% 50 ML IV SCH (21:00)
[2022-03-30] MEDS: oxyCODONE HCL IR 5 MG TAB (IMMEDIATE RELEASE) PO PRN (21:34)
[2022-03-31] MEDS: oxyCODONE HCL IR 5 MG TAB (IMMEDIATE RELEASE) PO PRN (01:41)
[2022-03-31] MEDS: LACTATED RINGER'S 1,000 ML IV SCH (05:14)
[2022-03-31] MEDS: metroNIDAZOLE 500 MG/100 ML BAG IV SCH (05:58)
[2022-03-31] MEDS: PANTOprazole 40 MG TAB PO SCH (05:58)
[2022-03-31] MEDS: ACETAMINOPHEN 1,000 MG/100 ML VIAL IV PRN (07:27)
[2022-03-31] MEDS: VENLAFAXINE HCL 50 MG TAB PO SCH (08:19)
[2022-03-31 08:28] LABS: Albumin Level 3.4 gm/dl (3.4-5.0); BUN Creatinine Ratio 9.9 (10-20); Bilirubin Direct 0.1 mg/dl (0-0.2); Bilirubin,Total 0.5 mg/dl (0.2-1.0); Calcium 8.2 mg/dl (8.5-10.1); Creatinine Clr Calc Pharmacy 92.3 ml/min; Est GFR (African American) 84.1 ml/min; Est GFR (Non-African American) 72.5 ml/min; Potassium 3.7 mmol/L (3.5-5.1); Total Protein 6.2 gm/dl (6.0-8.3)
[2022-03-31 08:30] LABS: Basophils # (auto) 0.01 K/uL (0-0.2); Basophils % (auto) 0.1 %; Eosinophils # (auto) 0.01 K/uL (0-0.5); Eosinophils % (auto) 0.1 %; Hemoglobin 11.6 g/dL (12.0-16.0); Immature Granulocytes # (auto) 0.05 K/uL (0.00-0.02); Immature Granulocytes % (auto) 0.3 %; Lymphocytes # (auto) 1.46 K/uL (1.2-3.4); Lymphocytes % (auto) 8.3 %; Mean Corpuscular Hemoglobin 32.1 pg (25-34); Mean Corpuscular Hgb Conc 32.2 g/dL (32-36); Mean Corpuscular Volume 99.7 fL (80-100); Mean Platelet Volume 10.2 fL (7.4-10.4); Monocytes % (auto) 5.1 %; Neutrophils % (auto) 86.1 %; Platelet Count 308 K/uL (130-400); RDW Coefficient of Variation 13.7 % (11.5-14.5); RDW Standard Deviation 49.6 fL (36.4-46.3); Red Blood Count 3.61 M/uL (4.2-5.4); White Blood Count 17.53 K/uL (4.8-10.8)
--- NOTE | 2022-03-31 09:27 | Surgery Progress Note ---
Date of Service March 31, 2022 Assessment & Plan (1) Acute cholecystitis: Plan: POD#1 robotic cholecystectomy WBC 17 (12), Hbg 11.6. LFTs are okay. Vitals are stable. She is currently on room air Tolerating clears, no n/v. Abdominal pain controlled. May advance diet Abdomen soft, incisions c/d/i Continue to work on ambulation and IS Will plan on dispo to home F/u with Dr. Galvan in 1-2 weeks Admission and Anticipated Discharge Date Admission Date: March 29, 2022 Supervising Physician Co-Signing Physician Notes Pnt seen and examined, agree with above. POD#1 robotic cholecystectomy. tolerated diet, feels bloated but no pain. afvss, abd soft, nt, nd. labs unremarkable. d/c to home, f/u in 2 weeks. wound care instructions and activity restrictions reviewed, return precautions given Subjective Patient feeling okay. Noticing some pain with deep inspirations. Abdominal pain is controlled. Denies nausea/vomiting. Physical Exam Physical Exam: awake/alert, no acute distress Respiratory: normal respiratory effort Gastrointestinal (Abdomen): Inspection/Auscultation: + abdominal surgical incision (c/d/i some mild alicia-incisional ecchymosis noted); abdomen not distended Percussion/Palpation: abdomen soft; abdomen nontender Results & Data ([facility]) Vital Signs (Past 12 Hours) Vital Signs Temp Pulse Pulse Resp BP Pulse Ox 03/31/22 07:35 36.8 C 88 18 127/85 95 03/31/22 04:19 36.8 C 72 16 135/90 98 03/30/22 22:40 37 C 93 H 16 137/85 93 PG Care Time/CCT Total # of Minutes Spent Total Time Spent with Patient: Total time spent is greater than 50% in coordination of care (as documented) at patient's floor/unit and/or counseling patient: Coding Level of Care Code None Diagnoses Acute cholecystitis K81.0
[2022-03-31] MEDS ORDERED: ACETAMINOPHEN 325 MG TAB PO PRN (12:39)
--- NOTE | 2022-04-04 10:45 | Discharge Summary ---
Date of Service March 31, 2022 Principal Diagnosis Acute cholecystitis Discharge Exam Constitutional WD/WN, vitals as above Gastrointestinal (Abdomen) Inspection/Auscultation: + abdominal surgical incision (clean, dry); abdomen not distended Percussion/Palpation: abdomen soft Discharge Data Allergies Allergy/AdvReac Type Severity Reaction Status Date / Time No Known Allergies Allergy Verified 03/30/22 09:55 Consultations 03/29/22 22:00 ED Decision to Admit Stat Procedures Performed Operation Date: 03/30/22 08:00 Actual Procedures p Robotic Laparoscopic Cholecystectomy - Dion Galvan DO, FACS Ordered Studies 03/29/22 19:37 CT abd pelvis IV con only Stat 03/29/22 21:38 US gallbladder Urgent Hospital Course (1) Acute cholecystitis: 51 y/o female presented to the ER with abdominal pain and nausea. White count was 15,[address] and U/S were consistent with acute cholecystitis. She was admitted overnight and taken to the operating room the next day for robotic- assisted cholecystectomy then returned to the surgical floor. On POD 1 she was able to advance diet and tolerate oral analgesics. She was stable for discharge home. Total Time Total Time Spent Total Time Spent (In Minutes): 15 Discharge Plan Discharge Items Patient Disposition: Home - Self-Care Reason For Visit: CHERRY Discharge Diagnosis: robotic cholecystectomy Activity: Per Instructions section Lifting: No more than 10 pounds Bathing Comment: may shower starting 03/31/22; no soaking in tubs/pools Exercise/Sports: Wait until after follow-up appointment Driving/Machine Use: no driving while taking narcotics for pain Non-emergency contact: Surgeon Call non-emergency contact if: you have any medication questions, your symptoms worsen, your pain is not controlled, your pain is concerning for you, you have a fever, your temperature is above 101.5, your wound has increased redness, your wound has increased drainage and your wound pain has increased Follow-up/Referrals: Scarlett Sloan MD [Primary Care Provider] - Dion Galvan DO, FACS [Physician] - 04/12/22 9:45 am () Diet: Regular Addtl Attending Provider Instructions: You may purchase Ibuprofen over the counter if needed for additional pain control over the next couple of days. Take with food. Follow label instructions Pending Studies at Discharge: Yes Studies:: surgical pathology Stand-Alone Forms: My [facility] [address], Smoking Cessation Medications and DC Order Prescriptions: New oxycodone-acetaminophen [Percocet] 5-325 mg tablet 1 - 2 tab PO .q4-6h PRN (Reason: pain, for initial therapy, max 6 tabs per day) Qty: 15 RF: 0 Continued lisinopril 20 mg tablet 20 mg PO QAM Qty: 90 RF: 1 hydrochlorothiazide 12.5 mg capsule 12.5 mg PO QAM Qty: 90 RF: 1 aspirin 81 mg tablet,delayed release (DR/EC) 81 mg PO QAM Qty: 90 RF: 1 venlafaxine 100 mg tablet 100 mg PO DAILY Qty: 30 RF: 5 cholecalciferol (vitamin D3) 50 mcg (2,000 unit) capsule 50 mcg PO DAILY Qty: 90 RF: 1 ferrous sulfate 325 mg (65 mg iron) tablet 325 mg PO DAILY RF: 0 fluticasone propionate [Flonase Allergy Relief] 50 mcg/actuation [place],Suspension 2 spray INTRANASAL DAILY PRN (Reason: Congestion) RF: 0 pantoprazole 40 mg tablet,delayed release (DR/EC) 40 mg PO DAILYBB RF: 0 Discharge Orders: Discharge Order (Routine); Ordered 03/31/22 Ordered By: Michelle Tam Admission Data Admit Date/Time: 03/29/22 22:20 Attending Provider: Dion Galvan Admit Provider: Dion Galvan Primary Care Provider: Scarlett Sloan Other Providers: Dion Galvan Other Interventions: Discharge Summary Assessment (RN) Last Done: 03/31/22 11:56 Coding Level of Care Code D/C DAY MANAGEMENT <30 MINS Diagnoses Acute cholecystitis K81.0
== END 2022-03-31 14:15 | disposition home or self-care (01) | DRG 419 ==
LOC: ED 19:12 → 3N 22:20